=== PATIENT | male | born 1960 | race Caucasian/White ===

== ENCOUNTER 2022-09-21 06:32 | Day surgery (SDC) | payer OTHER, SELFPAY ==
[2022-09-13 13:47] VITALS: BMI 25.2
[2022-09-21] VITALS (13 sets, daily range): BP systolic 118–157; BP diastolic 72–97; PULSE 14–99; RESP 14–19; TEMP 35.5–37; O2SAT 92–100; BMI 25.2
--- NOTE | 2022-09-21 06:00 | DI.RAD.S_ITS ---
PROCEDURE: XR HIP W PEL IF DONE LT 2V INDICATIONS: anterior CALIXTO TECHNIQUE: Spot fluoroscopic intraoperative images of the left hip. COMPARISON: [facility], , XR HIP W PEL IF DONE LT 2V, 09/21/2022, 10:21. FINDINGS: Fluoroscopic intraoperative images demonstrate a left total hip arthroplasty with hardware components in expected positions. Overlying postoperative changes are seen in the soft tissues. IMPRESSION: Intraoperative images demonstrate a left total hip arthroplasty with hardware components in expected positions. Approved by: Maverick Barney M.D. on 09/21/2022 at 13:51
[2022-09-21] MEDS: CELECOXIB 200 MG CAPSULE PO (07:03)
[2022-09-21] MEDS: VANCOMYCIN 1,000 MG/200 ML PIGGYBACK 200 MG IV (07:03)
[2022-09-21] MEDS: ACETAMINOPHEN 325 MG TABLET 975 MG PO (07:04)
--- NOTE | 2022-09-21 07:33 | PM.PREOP ---
Pre-operative Note Interval Note History & Physical reviewed/Exam performed by Physician: Yes Changes to H&P: No
[2022-09-21] MEDS: TRANEXAMIC ACID 1,000 MG VIAL 2000 MG INJ ×2 (08:00→09:43)
[2022-09-21] MEDS: CEFAZOLIN 2 GM/100 ML PREMIX 100 ML IV ×3 (08:01→23:13)
--- NOTE | 2022-09-21 08:31 | SUR.OPER ---
Supine on padded [place] table with bilateral legs secured in padded positioning boots and suspended in positioning spars, operative leg in traction per surgeon. Head on one pillow. Arm on non-operative side secured on padded armboard <90 degrees abduction. Arm on operative side padded and resting across chest then secured with tape over sheet. Padded perineal post in place per surgeon.
[2022-09-21] MEDS: BUPIVACAINE 0.25% (PF) 60 ML, EPINEPHrine 0.3 MG INJ (08:37)
[2022-09-21] MEDS: BUPIVACAINE LIPOSOME 266 MG/20 ML VIAL INJ (08:38)
[2022-09-21] MEDS: LACTATED RINGERS 1,000 ML 42 ML IV (08:39)
[2022-09-21] MEDS: EPINEPHrine 1 MG/ML TOP (08:45)
--- NOTE | 2022-09-21 10:27 | P.OP_ITS ---
Operative Date/Time/Diagnoses Date of procedure: 09/21/22 Time of procedure: 08:00 Pre-op diagnosis: Severe left hip OA Post-op diagnosis: same Procedure & Clinicians Procedure: Left total hip arthroplasty anterior approach Same procedure as scheduled: Yes Indications: The patient has had progressively worsening left hip pain with radiographic changes consistent with arthritis. Non-operative management has failed and the patient has requested total hip replacement. The risks, benefits and alternatives to surgery were discussed with the patient prior to proceeding. Risks discussed included, but were not limited to, failure to relieve pain, leg length discrepancy, dislocation, stiffness, infection, nerve damage, deep venous thrombosis, pulmonary embolism, stroke, coma, heart attack, permanent paralysis and , as well as the potential need for eventual revision of the prosthetic. Surgeon: Sierra Sosa Computer Applications Instructor: David Nava Anesthesia Type: General and Spinal Operative Notes Findings: Severe left hip OA, adequate bone, adequate stability Closure Type: primary Specimen(s): none sent Prosthetic devices, grafts, tissues, transplants, or devices: Sosa and Nephew size 56 R3 cup,one 6.5 mm screw, neutral poly liner, size 2 polar stem with collar, 36+ 0 Oxinium head Estimated Blood Loss (mL): 250 Blood products transfused: none Procedure in detail: The patient was brought to the operating room. Patient was carefully positioned in the supine position. Time-out was performed and antibiotics were given. Anesthesia was induced. He was positioned in the on the table in order to allow hyperextension of the hip. The left lower extremity was prepped and draped in a standard sterile fashion. An anterior left hip incision was made 1 fingerbreadth lateral to the anterior superior iliac spine and extended distally towards the greater trochanter. Dissection was carried out through skin and subcutaneous tissues. Superficial hemostasis was achieved. The fascia over the tensor fascia yhoan was defined and incised with a knife. Two Allis clamps were used to grasp the fascia. Tensor fascia yohan was retracted laterally. A gelpi retractor was placed. Dissection was carried out down along the neck. The circumflex vessels were carefully identified and cauterized with the Aqua Mantis. A PA was used throughout the procedure and was essential for retraction and safe implantation of the components. They were also very helpful for assisting with a establishing adequate hemostasis. There was good visualization of the femoral neck. A Cobra was placed superior to the neck and the gluteus fibers were carefully stripped from that superior aspect of the capsule. A 2nd retractor was placed along the inferior aspect of the neck. The rectus insertion along the capsule was partially released. A 3rd retractor that was then gently placed over the rim of the acetabulum under the rectus. Capsule was carefully incised and released from the intertrochanteric line circumferentially superior to the mid sagittal line and inferiorly to the mid sagittal line until the lesser trochanter was palpable. A tag stitch was placed both in the superior and inferior limb of the capsular insertion. Along the acetabulum capsule was also released up to the mid sagittal 12:00 position. A portion of the labrum was resected. A saw was used to perform an osteotomy at the level of the intertrochanteric line and the junction of the superior femoral neck leaving approximately 1 finger breath of residual inferior neck above the lesser trochanter. A 2nd cut was made along the femoral neck at the base of the head and a napkin ring of neck was removed. Corkscrew was placed in the femoral head and the head was removed without difficulty. Retractors were then repositioned around the acetabulum. Residual labrum was resected and additional osteophytes were removed. A reamer that was 4 mm below the templated size was placed by hand in the acetabulum and it was reamed to centralize the acetabulum. It was then reamed up to 2 under the templated size and fluoroscopy was brought in to confirm the position of the reaming and depth of reaming. I reamed 1 under the anticipated size and touched the rim with line to line reaming. A trial cup was placed and noted that it was appropriately sized and fluoroscopy confirmed position and depth. The component was open and inserted without difficulty fluoroscopic imaging was used to confirm that the cup had been adequately seated and was well positioned. It was further stabilized with a single screw. Neutral poly liner was placed. The cup was tested and noted to be stable. Attention was then directed to the femur. The femur was gently hyperextended additional capsular release was performed as needed in order to allow adequate visualization of the proximal femur with elevation of the femur. Patient was placed in a hyperextended slightly adducted position with maximum external rotation. Box osteotome was used to check for any residual neck as well as sclerotic bone along the trochanter. Morrice pepper was placed in the femur. Additional broaching was performed. Canal finder was used to determine the alignment of the canal and position. Size 1 broach was placed. The canal was then appropriately broached up to the templated size as long as there was adequate stability of the broach and serial advancement of the broach without excessive impingement. Specific attention was directed at avoiding varus attempting to direct the distal aspect of the broach more anteriorly and avoiding excessive anteversion. Trial reduction showed acceptable range of motion, good stability, no posterior impingement, pentecostal of leg length and appropriate lateral shuck. I also hyperflexed the hip and checked that there was no impingement anteriorly and there was good stability with flexion, adduction and internal rotation. Marcaine and Exparel were injected. The stem was placed without difficulty. Repeat trial reduction and x-ray showed acceptable overall position, length, and no evidence of the femoral fracture. Final head was placed. Wound was meticulously irrigated with normal saline. The hip was reduced and additional Exparel and Marcaine were injected. The capsule was closed with interrupted nonabsorbable sutures. The fascia of the tensor was closed with interrupted and running Vicryl. No drain was placed. Any tensor fascia yohan muscle that appeared to be contused or injured which was a minimal amount was carefully resected. Capsule around the tensor was injected with Exparel and Marcaine. The skin was closed with barbed stitches for the subcutaneous tissue and skin. We also used surgical glue. The wound was dressed sterilely. Brief Betadine soak was also used and was meticulously irrigated with normal saline. Patient was transferred to recovery room in satisfactory condition. Complications: none Post-operative Condition: stable Disposition: Acute Care Plan for aftercare: The patient will be maintained on a standard total hip replacement protocol with weight bearing as tolerated and anterior hip precautions. The patient will receive Aspirin and sequential compression devices for DVT prophylaxis. The patient will be discharged home when safe for the home environment.
--- NOTE | 2022-09-21 10:30 | DI.RAD.S_ITS ---
PROCEDURE: XR HIP W PEL IF DONE LT 2V INDICATIONS: LEFT TOTAL ANTERIOR HIP TECHNIQUE: 2 view(s) of the hip acquired. COMPARISON: [facility], NICHOLAS, XR HIP W PEL IF DONE LT 2V, 09/21/2022, 9:03. FINDINGS: Bones: Patient is status post left hip arthroplasty, with hardware components in expected positions. The hip joint appears congruent. The visualized bony structures appear intact. Soft tissues: Overlying postoperative changes are noted. No suspicious soft tissue densities. IMPRESSION: Postoperative changes from left hip arthroplasty. Dictated by: Maverick Khan M.D. on 09/21/2022 at 14:03 Approved by: Maverick Khan M.D. on 09/21/2022 at 14:10
--- NOTE | 2022-09-21 11:21 | PC.NURSE ---
Pt to room 220 via bed from PACU. Pt awake, alert, and oriented x 3. Denies pain, nausea, or shortness of breath. CMS intact throughout but Pt states his leg feels heavy. Pt states he feels depressed and at one point began to sob. Discussed post-op effects. Pt stated he was ok. VS stable. SCD's on and running. Pt oriented to room, call light, bed controls, and tv controls. Oriented Pt in I.S. use and Pt was able to exceed goal with 10 breaths and excellent breath holding ability. Bed alarm on for safety. Pt agrees to call for assistance as needed.
[2022-09-21] MEDS: LACTATED RINGERS 1,000 ML 100 ML IV ×2 (11:28→23:15)
[2022-09-21] MEDS: IBUPROFEN 400 MG TABLET PO ×4 (11:28→23:19)
[2022-09-21] MEDS: ACETAMINOPHEN 325 MG TABLET 650 MG PO ×2 (12:49→18:33)
--- NOTE | 2022-09-21 14:25 | PT.IIE ---
Current Diagnoses Unilateral primary osteoarthritis, left hip (09/21/22) Surgery Performed Operation Date: 09/21/22 07:45 Actual Procedures p Total Hip Arthroplasty/Anterior Approach(Left) - Sierra Sosa MD Surgical History (Last Updated 09/13/22 @ 14:12 by Lynne Nunez, RN) History of colonoscopy Hx of tonsillectomy [place] teeth extracted Medical History (Last Updated 09/13/22 @ 14:12 by Lynne Nunez, RN) BPH (benign prostatic hyperplasia) GERD (gastroesophageal reflux disease) Osteoarthritis Psoriasis Physical Therapy Inpatient Evaluation/Re-Eval M1 PT/OT-IP Prior Functional Status Start: 09/21/22 16:25 Freq: NEEDED Status: Active Protocol: Document 09/21/22 14:25 AB (Rec: 09/21/22 16:48 AB [id number]) Medical Review Prior Functional Status Medical History Reviewed Yes Communication able to make needs known Mobility and Gait pt stated that he is indpeendent with all mobilities and ambulation without AD Social History Household Members spouse Living Arrangements House Number of Floors (Floors) Two Floors Number of Stairs To Enter/Railing? 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) pt lives with spouse and spouse will be able to assist pt M2 PT-IP Current Condition Start: 09/21/22 16:25 Freq: NEEDED Status: Active Protocol: Document 09/21/22 14:25 AB (Rec: 09/21/22 16:48 AB [id number]) Physical Therapy Current Condition Current Condition Evaluation Date 09/21/22 Treatment Diagnosis s/p L CALIXTO anterior approach; difficulty in walking Onset Date 09/21/22 M3 PT-IP Subjective Start: 09/21/22 16:25 Freq: NEEDED Status: Active Protocol: Document 09/21/22 14:25 AB (Rec: 09/21/22 16:48 AB [id number]) Subjective Physical Therapy Visit Type Type Initial Evaluation Visit Start Time 14:25 Visit Stop Time 15:11 Total Visit Minutes 46 Number of QUARRY EXTRACTION WORKER Visits 0 Physical Therapy Visit Comments Patient Comments agreeable to do PT Therapy Pain Assessment Pain Present Pain Present Denied Pain M4 PT-IP Mobility and Gait Start: 09/21/22 16:25 Freq: NEEDED Status: Active Protocol: Document 09/21/22 14:25 AB (Rec: 09/21/22 16:48 [id number]) PT-Bed Mobility Assessment Supine to Sit Supine to Sit Standby Assistance Sit to Supine Sit to Supine Standby Assistance PT-Transfer Assessment Sit to and From Stand Sit to and from Stand Contact Guard Assistance,1 Person Assistance,Use of Upper Extremities Equipment Transfer Assistive Device Gait Belt,Front Wheeled Walker Orthotic/Prosthetic Devices or Brace: No Transfers Transfer Destination Bed,Chair Transfer Technique ambulated Transfer Ability Level of Assist Contact Guard Assistance,1 Person Assistance,Use of Upper Extremities Comments Mobility Comments pt sitting on the chair and spouse in room with pt. pt agreeable to do PT. educated pt on anterior hip precautions . completed sit to stand CGA and ambulated in room ~ 35 ft using FWW CGA. sat on EOB and completed sit to supine SBA. completed sit to stand from EOB CGA and step transfer to chair CGA. Left pt with OT. Caregiver training set up for tomorrow at 10am Gait Assessment Gait Gait Assistance Required: Contact Guard Assist Distance (Feet) 35 Able to Maintain Weight Bearing Status Yes During Gait Assistive Devices Assistive Device Gait Belt,Front Wheeled Walker Orthotic/Prosthetic Devices or Brace: No Gait Deviations General Gait Pattern Decreased Feet Clearance Factors Limiting Gait Function Factors Limiting Gait Function Decreased Activity Tolerance, Decreased Strength,Limited Range of Motion,Poor Balance, Poor Safety Awareness PT-Balance Assessment Sitting Balance and Reactions Static Sitting Balance Ability Normal Dynamic Sitting Balance Ability Good Standing Balance and Reactions Static Standing Balance Ability Fair Dynamic Standing Balance Ability Fair Device Used FWW M5 PT-IP Objective Assessments Start: 09/21/22 16:25 Freq: NEEDED Status: Active Protocol: Document 09/21/22 14:25 AB (Rec: 09/21/22 16:48 [id number]) Orientation Orientation/Cognition Level of Alertness Alert Orientation Name,Place,Situation Language Function Ability No Deficits Noted Safety Awareness Understands Safety Issues Memory Description Short Term Impaired Gross Range of Motion Lower Extremity ROM Assessment Within Functional Limits Strength Lower Extremity Strength Assessment Left Impaired Hip 3+/5 Knee 4-/5 Coordination Assessment Gross Coordination Gross Coordination WNL Sensation Assessment Sensation Gross Sensation WNL Muscle Tone Muscle Tone WNL Yes M6 PT-IP Treatment Start: 09/21/22 16:25 Freq: NEEDED Status: Active Protocol: Document 09/21/22 14:25 AB (Rec: 09/21/22 16:48 AB [id number]) Physical Therapy Treatment Education Education Provided Precautions,Weight Bearing Status,Post-Op Packet,Safety M7 PT-IP Assessment and Plan Start: 09/21/22 16:25 Freq: NEEDED Status: Active Protocol: Document 09/21/22 14:25 AB (Rec: 09/21/22 16:48 AB [id number]) PT Summary Assessment and Plan Potential Rehabilitation Potential Good Status of Condition at Evaluation Evolving Summary Impairments Pain,ROM,Strength,Balance, Coordination,Sensation,Tone, Cognition,Bed Mobility, Transfers,Gait,Activity Tolerance Assessment Summary pt s/p L CALIXTO anterior approach POD0. pt requiring CGA with mobility using FWW. pt plans to go home with spouse to assist and has outpt PT set up . caregiver training set up for tomorrow at 10 am. will continue to assess progress. Goals Bed Mobility Goal Independent Transfer Goal Independent,Front Wheeled Walker Gait Goal Independent,Front Wheel Walker Gait Distance 300 Other Goals up/down 3 steps without rails/ bilateral [place] SBA Days to Meet Goals 5 Frequency of Treatment Frequency Of Treatment Twice a Day Treatment Plan Physical Therapy Treatment Plan Bed Mobility Training,Transfer Training,Gait Training, Therapeutic Exercise,Balance Retraining,Post Op Education, Discharge Planning,Hot or Cold Pack,Neuromuscular Re-ed, Coordination Retraining,Manual Therapy Other Recommendations and Next Treatment Caregiver trainin09/22/22 @ Focus 10 am Precautions Anterior Hip Precautions No Hip Extension,No Hip External Rotation Weight Bearing Status Weight Bearing Status Weight Bear as Tolerated Allowed Weight Bearing Amount (enter % LLE WBAT or #) (%) Recommendations To Nursing Amount of Assist Needed 1 Person Assist Discharge Recommendations PT Discharge Recommendations Home with Assistance, Outpatient PT Transportation Needs at Discharge Private Vehicle
--- NOTE | 2022-09-21 15:25 | OT.IP.EVAL ---
Current Diagnoses Unilateral primary osteoarthritis, left hip (09/21/22) Surgery Performed Operation Date: 09/21/22 07:45 Actual Procedures p Total Hip Arthroplasty/Anterior Approach(Left) - Sierra Sosa MD Past Medical History (Last Updated 09/13/22 @ 14:12 by Lynne Nunez, RN) BPH (benign prostatic hyperplasia) GERD (gastroesophageal reflux disease) Osteoarthritis Psoriasis Surgical History (Last Updated 09/13/22 @ 14:12 by Lynne Nunez, RN) History of colonoscopy Hx of tonsillectomy [place] teeth extracted Occupational Therapy Inpatient Evaluation/Re-Eval M2 OT-IP Current Condition Start: 09/21/22 16:11 Freq: Status: Active Protocol: Document 09/21/22 14:30 [facility] (Rec: 09/21/22 16:26 [facility] [id number]) Occupational Therapy Current Condition Current Condition Evaluation Date 09/21/22 Treatment Diagnosis S/P L CALIXTO anterior approach Diagnosis Onset Date 09/21/22 Post Operative Precautions Anterior Hip Precautions No Hip Extension,No Hip External Rotation M3 OT- IP Subjective and Pain Start: 09/21/22 16:11 Freq: Status: Active Protocol: Document 09/21/22 14:30 [facility] (Rec: 09/21/22 16:26 [facility] [id number]) OT- Subjective Occupational Therapy Visit Type Type Initial Evaluation Visit Start Time 14:30 Visit Stop Time 15:25 Total Visit Minutes 55 Occupational Therapy Visit Comments Patient Comments Pt agreed to get up and pt's in the room. Patient/Caregiver Goals To go home. OT Pain Assessment Pain When Pain Assessed At Rest Pain Present Pain Present Pain Reported Location Left Hip Intensity 2 Scale Used Numeric (0 - 10) M4 OT- IP ADL's Start: 09/21/22 16:11 Freq: Status: Active Protocol: Document 09/21/22 14:30 [facility] (Rec: 09/21/22 16:26 [facility] [id number]) OT [id number] General Evaluation Self-Feeding Ability Independent OT ADL-Grooming General Evaluation Grooming Ability Independent OT ADL-Oral Care General Eval Oral Care Ability Independent OT ADL-Dressing General Eval Lower Body Dressing Ability Standby Assistance,Maximum Assistance Comments OT Dressing Comments Able to go over use of radar mechanic and sock aid and to be sure not to cross his left hip over into external rotation. Pt states his to assist. OT ADL-Toileting Comments OT Toileting Comments Pt states normally stands to wipe and also has a bidet at home. OT ADL-Bathing Comments OT Bathing Comments Pt has a built in seat but suggested pt get a shower chair with back and use of non -slip mat for safety. M5 OT- IP IADL's Start: 09/21/22 16:11 Freq: Status: Active Protocol: Document 09/21/22 14:30 [facility] (Rec: 09/21/22 16:26 [facility] [id number]) OT-Instrumental Activities of Daily Living Deficits IADL Deficits Identified Deficits Home Safety Awareness Awareness of Need for Assistance at Home Good Awareness Ability to Problem Solve Emergency Able to Problem Solve Situations Home Safety Comments Pt has a supportive to be able to assist with all his needs as needed. M6 OT- IP Functional Cognition Start: 09/21/22 16:11 Freq: Status: Active Protocol: Document 09/21/22 14:30 [facility] (Rec: 09/21/22 16:26 [facility] [id number]) Cognitive Factors Limiting Selfcare Function Cognitive Ability Level of Alertness Alert Patient Orientation Name,Place,Situation Attention Span Ability Capable of Focused Attention, Capable of Sustained Attention Ability to Follow Commands Able to Follow One Step Commands Cognitive Comments Cognitive Assessment Comments Pt able to states and follow his hip precautions with good safety for ADl's and mobility needs. OT- Vision and Hearing OT- Hearing Assessment OT- Hearing Assessment WFL OT- Vision Assessment Visual Acuity Glasses All The Time M7 OT- IP Mobility and Balance Start: 09/21/22 16:11 Freq: Status: Active Protocol: Document 09/21/22 14:30 [facility] (Rec: 09/21/22 16:26 [facility] [id number]) OT- Bed Mobility Assessment Supine to Sit Supine to Sit Assist Standby Assistance Sit to Supine Sit to Supine Assist Standby Assistance OT-Transfer Assessment Sit to and From Stand Sit to and from Stand Contact Guard Assistance Transfers Transfer Ability Contact Guard Assistance Technique Transfer Destination Bed,Chair Transfer Technique Stand Step Pivot Devices Transfer Assistive Devices Gait Belt,Front Wheeled Walker Comments Mobility Comments SBA with bed mobility and heavy use of his arms for bed mobility needs and also to push down on the FWW. OT- Balance Assessment Sitting Balance and Reactions Static Sitting Balance Ability Normal Dynamic Sitting Balance Ability Good Standing Balance and Reactions Static Standing Balance Ability Good Dynamic Standing Balance Ability Fair M8 OT- IP Objective Assessments Start: 09/21/22 16:11 Freq: Status: Active Protocol: Document 09/21/22 14:30 [facility] (Rec: 09/21/22 16:26 [facility] [id number]) OT Gross Range of Motion Upper Extremity Range of Motion Assessment Within Functional Limits OT Strength Upper Extremity Strength Assessment Within Functional Limits OT-Muscle Tone Assessment Muscle Tone WNL Yes M9 OT- IP Assessment and Plan Start: 09/21/22 16:11 Freq: Status: Active Protocol: Document 09/21/22 14:30 [facility] (Rec: 09/21/22 16:26 [facility] [id number]) OT Summary Assessment and Plan Potential Rehabilitation Potential Excellent Analytic Complexity at Evaluation Low Summary OT Impairments Pain,Strength,Balance, Functional Mobility,Dressing, Toileting,Bathing,Toilet Transfers,Shower Transfers Progress Towards Goals Progressing Toward Goals Assessment Summary Pt low complexity and main barriers are steps and now will need some assist especially for showering/ dressing needs. Pt has a supportive to be able to assist him at home. Pt's to come for caregiver training for PT tomorrow at 10Am for steps and also to do showering if pt feels up for it. Pt to go home with assist and outpt PT. Encouraged pt to stay on top on his pain medications and be sure to ask the nurse/PA for other options as pt not wanting to take Oxycodone at this time and is just on Advil . Goals Dressing Goal Independent Toileting Goal Independent Bathing Goal Independent Toilet Transfer Goal Independent Shower Transfer Goal Independent Days to Meet Goals 5 Frequency of Treatment Frequency Of Treatment Once a Day Treatment Plan OT Treatment Plan ADL Training,Functional Mobility,Patient/Family Education,Discharge Planning Other Treatment Recommendations and Next shower if pt willing Treatment Focus Discharge Recommendations OT Discharge Recommendations Home with Assistance, Outpatient PT Home Equipment Needs shower chair Transportation Needs at Discharge Private Vehicle
[2022-09-21] MEDS: ASPIRIN EC 81 MG TABLET PO (21:04)
[2022-09-21] MEDS: DOCUSATE 100 MG CAPSULE PO (21:05)
[2022-09-22] MEDS: ACETAMINOPHEN 325 MG TABLET 650 MG PO ×2 (00:57→06:22)
[2022-09-22] MEDS: OXYCODONE IR 5 MG TABLET PO (00:57)
[2022-09-22] MEDS: IBUPROFEN 400 MG TABLET PO ×3 (02:59→11:07)
[2022-09-22 03:06] VITALS: BP 122/76; PULSE 98; RESP 18; TEMP 36.2; O2SAT 98
[2022-09-22 05:50] LABS: Hematocrit 34.9 % (41-53); Hemoglobin 12.5 g/dL (13.5-17.5)
[2022-09-22] MEDS: OXYCODONE IR 10 MG TABLET PO (06:22)
[2022-09-22] MEDS: PANTOPRAZOLE DR 20 MG TABLET PO (06:23)
--- NOTE | 2022-09-22 07:34 | P.DS_ITS ---
History of Present Illness History of Present Illness Date Patient Seen: 09/22/22 Time Patient Seen: 07:34 Chief complaint: OPB Narrative: Operative Date/Time/Diagnoses Date of procedure: 09/21/22 Time of procedure: 08:00 Pre-op diagnosis: Severe left hip OA Post-op diagnosis: same Procedure & Clinicians Procedure: Left total hip arthroplasty anterior approach Same procedure as scheduled: Yes Indications: The patient has had progressively worsening left hip pain with radiographic changes consistent with arthritis. Non-operative management has failed and the patient has requested total hip replacement. The risks, benefits and alternatives to surgery were discussed with the patient prior to proceeding. Risks discussed included, but were not limited to, failure to relieve pain, leg length discrepancy, dislocation, stiffness, infection, nerve damage, deep venous thrombosis, pulmonary embolism, stroke, coma, heart attack, permanent paralysis and , as well as the potential need for eventual revision of the prost hetic. Surgeon: Sierra Sosa Accounting Administrator: David Nava Anesthesia Type: General and Spinal Operative Notes Findings: Severe left hip OA, adequate bone, adequate stability Closure Type: primary Specimen(s): none sent Prosthetic devices, grafts, tissues, transplants, or devices: Sosa and Nephew size 56 R3 cup,one 6.5 mm screw, neutral poly liner, size 2 polar stem with collar, 36+ 0 Oxinium head Estimated Blood Loss (mL): 250 Blood products transfused: none Discharge Providers Provider Discharge Date: 09/22/22 Consults: 09/21/22 06:00 Consult to Anesthesiology Routine Comment: Consulting Provider: Anesthesiologist Reason for consultation: Regional block for post operative pain control 09/21/22 10:49 Consult to Discharge Planning Routine Comment: Consult to Occupational Therapy Evaluate & Treat Comment: Physician Instructions: Evaluate and treat Consult to Physical Therapy Evaluate & Treat Comment: Physician Instructions: post op CALIXTO protocol Discharge provider: Leny Stover PA-C Summary Hospital Course Discharge Diagnosis: Left hip osteoarthritis, s/p left total hip arthroplasty Hospital Course: Mr Hanson's hospital course was unremarkable. On the morning of POD# 1, he was feeling well and wanted to go home. He was eating and voiding without difficulty. He was evaluated by PT during his stay and they felt he was safe for homegoing. He was having very little pain with oral pain medication. Exam Vital Signs (past 8 hours): - 09/22/22 03:06 Temperature 97.2 F L Pulse Rate 98 H Respiratory Rate 18 Blood Pressure 122/76 Pulse Oximetry 98 Oxygen Flow Rate 0 Oxygen Delivery Method Room Air Oxygen Flow Rate 0 Narrative Exam Narrative: 5/5 strength in hip flexors, quadriceps, hamstrings, DF, PF, EHL on left. Sensation to light touch intact throughout LLE. Calf soft, compressible, nontender. Aquacel dressing CDI. Objective Labs 09/22/22 05:13 Labs: Laboratory Results - last 24 hr 09/22/22 05:13 Hgb 12.5 L Hct 34.9 L PFSH Medical History (Updated 09/13/22 @ 14:12 by Lynne Nunez, ROMI) BPH (benign prostatic hyperplasia) GERD (gastroesophageal reflux disease) Osteoarthritis Psoriasis Surgical History (Updated 09/13/22 @ 14:12 by Lynne Nunez, ROMI) History of colonoscopy Hx of tonsillectomy [place] teeth extracted Social History household members: spouse Smoking Status: Never smoker alcohol intake: current Discharge Assessment & Plan Assessment and Plan Assessment: Left hip osteoarthritis, s/p left total hip arthroplasty Plan of Treatment: Discharge home, multimodal pain control (pt has rxs), outpt PT, f/u in 2 weeks as scheduled. Discharge Plan Discharge Plan Patient Disposition: Home Discharge orders & Medications Discharge Orders: Discharge (Order); Ordered 09/22/22 Ordered By: Leny Stover Prescriptions: Continued tamsulosin 0.4 mg Capsule 0.4 mg PO DAILY omeprazole 20 mg Tablet,Delayed Release (Dr/Ec) 20 mg PO DAILY cholecalciferol (vitamin D3) [Vitamin D3] 125 mcg (5,000 unit) Tablet 125 mcg PO DAILY omega 9-kjg-set-fish oil [Fish Oil] 300-1,000 mg Capsule 1 cap PO DAILY Follow up/Referrals: Sierra Sosa MD [Physician] - As previously scheduled (Follow up with Bety Kerr PA-C, on 10/05/2022 @ 4:00 pm at [facility] office in [place].) Diet/Activity/Treatments Diet: Diet as Tolerated Activity: Weightbearing as tolerated to left leg. Anterior hip precautions. Cold/Heat Therapy: Ice to hip as needed for pain. Skin/Wound/Dressing Care Report to your healthcare provider any signs of infection, such as:: chills, fever, night sweats, unusual drainage and unusual redness Dressing: May shower. Leave dressing in place until follow up in office. No bathing or otherwise soaking incision. Call the office if the dressing becomes saturated inside. Visit Report/Discharge Packet Instructions: DI for Hip Replacement Stand Alone Forms: Patient Portal/API, Surgery Discharge Discharge Data Attending Provider: Sierra Sosa Quality VTE Deep Vein Thrombosis/Pulmonary Embolism Present on Admission: No
[2022-09-22 07:50] VITALS: BP 117/67; PULSE 78; RESP 18; TEMP 36.3; O2SAT 97
[2022-09-22] MEDS: CHOLECALCIFEROL (VITAMIN D3) 5,000 UNIT TABLET 5000 UNIT PO (08:19)
[2022-09-22] MEDS: TAMSULOSIN 0.4 MG CAPSULE PO (08:19)
[2022-09-22] MEDS: FISH OIL 1,000 MG CAPSULE 1000 MG PO (08:19)
[2022-09-22] MEDS: ASPIRIN EC 81 MG TABLET PO (08:19)
[2022-09-22] MEDS: DOCUSATE 100 MG CAPSULE PO (08:19)
--- NOTE | 2022-09-22 08:33 | PC.NURSE ---
Assess- Patient is alert and oriented x4, r.anterior hip dressing is cdi. Patient had tylenol and ibuprofen this morning and this has been helpful for discomfort to hip. He was offered Oxycodone but refused. will be here soon to visit. Patient will work with physical therapy and then be discharged home if all goes well.
--- NOTE | 2022-09-22 10:05 | PT.IPTN ---
Current Diagnoses Unilateral primary osteoarthritis, left hip (09/21/22) Surgery Performed Operation Date: 09/21/22 07:45 Actual Procedures p Total Hip Arthroplasty/Anterior Approach(Left) - Sierra Sosa MD Physical Therapy Treatment Note M2 PT-IP Current Condition Start: 09/21/22 16:25 Freq: NEEDED Status: Active Protocol: Document 09/21/22 14:25 AB (Rec: 09/21/22 16:48 AB [id number]) Physical Therapy Current Condition Current Condition Evaluation Date 09/21/22 Treatment Diagnosis s/p L CALIXTO anterior approach; difficulty in walking Onset Date 09/21/22 M3 PT-IP Subjective Start: 09/21/22 16:25 Freq: NEEDED Status: Active Protocol: Document 09/22/22 10:32 TS (Rec: 09/22/22 10:57 TS [id number]) Subjective Physical Therapy Visit Type Type Treatment Note Visit Start Time 10:05 Visit Stop Time 10:31 Total Visit Minutes 26 Number of JEWELRY RACKER Visits 1 Physical Therapy Visit Comments Patient Comments Pt found resting in bed, spouse in room, motivated to work PT. Therapy Pain Assessment Pain When Pain Assessed During Mobility Pain Present Pain Present Denied Pain M4 PT-IP Mobility and Gait Start: 09/21/22 16:25 Freq: NEEDED Status: Active Protocol: Document 09/22/22 10:32 TS (Rec: 09/22/22 10:57 TS [id number]) PT-Bed Mobility Assessment Supine to Sit Supine to Sit Standby Assistance Scooting Scooting to Edge of Bed Standby Assistance PT-Transfer Assessment Sit to and From Stand Sit to and from Stand Standby Assistance,1 Person Assistance,Use of Upper Extremities Equipment Transfer Assistive Device Gait Belt,Front Wheeled Walker Orthotic/Prosthetic Devices or Brace: No Comments Mobility Comments Pt found resting in bed, agreeable to PT. Pt recalled 2 /2 hip precautions prior to mobility. Supine to sit SBA with BUE support on bed to scoot forward. Spouse instructed and donned gait belt prior to sit to stand. Sit to stand with FWW SBA, pt quickly to stand with good balance and posture. He ambulated ~220' SBA with step to antalgic gait with FWW, pt cued to keep FWW on ground. Pt performed steps x3 with BUE rail support, spouse instructed in proper handplacement on gait belt and step sequencing CGA. Pt ambulated back to room, educated pt on post-op exercises and frequency of walking at home. Pt was left in chair with call light nearby, spouse in room, RN notified. Gait Assessment Gait Gait Assistance Required: Standby Assistance Distance (Feet) 220 Able to Maintain Weight Bearing Status Yes During Gait Assistive Devices Assistive Device Gait Belt,Front Wheeled Walker Orthotic/Prosthetic Devices or Brace: No Gait Deviations General Gait Pattern Antalgic,Decreased Stride Length,Decreased Feet Clearance Factors Limiting Gait Function Factors Limiting Gait Function Decreased Activity Tolerance, Decreased Strength,Limited Range of Motion,Poor Balance, Poor Safety Awareness Comments Gait Comments See mobility comments. Stair Climbing Assessment Evaluation Level of Assist On Stairs Contact Guard Assistance,1 Person Assistance Devices Stair Climbing Assistive Devices Left Railing,Right Railing Technique/Endurance Stair Climbing Direction Ascend and Descend Stair Climbing Technique Step to Step Number of Steps Climbed 3 Comments Stair Climbing Comments See mobility comments. PT-Balance Assessment Sitting Balance and Reactions Static Sitting Balance Ability Normal Dynamic Sitting Balance Ability Good Standing Balance and Reactions Static Standing Balance Ability Good Dynamic Standing Balance Ability Good Device Used FWW M5 PT-IP Objective Assessments Start: 09/21/22 16:25 Freq: NEEDED Status: Active Protocol: Document 09/21/22 14:25 AB (Rec: 09/21/22 16:48 AB [id number]) Orientation Orientation/Cognition Level of Alertness Alert Orientation Name,Place,Situation Language Function Ability No Deficits Noted Safety Awareness Understands Safety Issues Memory Description Short Term Impaired Gross Range of Motion Lower Extremity ROM Assessment Within Functional Limits Strength Lower Extremity Strength Assessment Left Impaired Hip 3+/5 Knee 4-/5 Coordination Assessment Gross Coordination Gross Coordination WNL Sensation Assessment Sensation Gross Sensation WNL Muscle Tone Muscle Tone WNL Yes M6 PT-IP Treatment Start: 09/21/22 16:25 Freq: NEEDED Status: Active Protocol: Document 09/22/22 10:32 TS (Rec: 09/22/22 10:57 TS [id number]) Physical Therapy Treatment Education Education Provided Precautions,Weight Bearing Status,Post-Op Packet,Safety M7 PT-IP Assessment and Plan Start: 09/21/22 16:25 Freq: NEEDED Status: Active Protocol: Document 09/22/22 10:32 TS (Rec: 09/22/22 10:57 TS [id number]) PT Summary Assessment and Plan Potential Rehabilitation Potential Good Summary Impairments Pain,ROM,Strength,Balance, Coordination,Sensation,Tone, Cognition,Bed Mobility, Transfers,Gait,Activity Tolerance Progress Towards Goals Progressing Toward Goals Assessment Summary Pt is progressing well with his mobility. He is SBA for all bed mobility and sit to stands with FWW. He progressed his ambulation to ~220' SBA with FWW, has a step to antlalgic gait with FWW, he required cues to keep FWW on ground when walking. He progressed his stairs to x3 CGA with BUE handrail assist. Pt's spouse was educated/ instructed on proper donning of gait, handplacement on gait belt with mobility and the proper sequencing of stairs. PT is recommending return home with assist. Pt has outpatient appointment in a week. Goals Bed Mobility Goal Independent Transfer Goal Independent,Front Wheeled Walker Gait Goal Independent,Front Wheel Walker Gait Distance 300 Other Goals up/down 3 steps without rails/ bilateral [place] SBA Days to Meet Goals 5 Frequency of Treatment Frequency Of Treatment Twice a Day Treatment Plan Physical Therapy Treatment Plan Bed Mobility Training,Transfer Training,Gait Training, Therapeutic Exercise,Balance Retraining,Post Op Education, Discharge Planning,Hot or Cold Pack,Neuromuscular Re-ed, Coordination Retraining,Manual Therapy Other Recommendations and Next Treatment Continue to work on stair Focus training and assess carryover of post-op ex. Precautions Anterior Hip Precautions No Hip Extension,No Hip External Rotation Weight Bearing Status Weight Bearing Status Weight Bear as Tolerated Allowed Weight Bearing Amount (enter % LLE WBAT or #) (%) Recommendations To Nursing Amount of Assist Needed Standby Assistance Discharge Recommendations PT Discharge Recommendations Home with Assistance, Outpatient PT Transportation Needs at Discharge Private Vehicle
--- NOTE | 2022-09-22 11:08 | OT.IPNOTE ---
Finalized all OT needs, pt's able to picker a shower chair for pt to use at home. No charge.
== END 2022-09-22 11:30 | disposition home or self-care (01) ==
LOC: OR 06:35 → AC 06:36
PROVIDERS: Referring Provider Orthopaedic Surgery; Visit Provider Orthopaedic Surgery
PROC: (CPT 27130; principal; 2022-09-21 07:45)
DX: M16.12 Unilateral primary osteoarthritis, left hip (principal)
CPT/HCPCS: 27130; 36415; 73502; 76000; 85014; 85018; 97116; 97162; 97165; 97530; 97535; C1776; A9270; C9290; J0171; J0690; J3010

== ENCOUNTER 2022-12-19 08:26 | Day surgery (SDC) | payer OTHER, SELFPAY ==
[2022-09-21 10:59] VITALS: BMI 25.2
[2022-12-12 13:42] VITALS: BMI 25.2
[2022-12-19] VITALS (14 sets, daily range): BP systolic 100–143; BP diastolic 61–86; PULSE 72–91; RESP 12–20; TEMP 35.7–36.4; O2SAT 94–100; BMI 24.1
--- NOTE | 2022-12-19 06:00 | DI.RAD.S_ITS ---
PROCEDURE: XR HIP W PEL IF DONE RT 2V INDICATIONS: CALIXTO right inner op anetrior TECHNIQUE: AP pelvis and lateral view of the right hip acquired. [facility] [place], XR PELVIS WITH LATERAL HIP RIGHT, 11/30/2022, 16:47. FINDINGS: Bones: Patient is status post right hip arthroplasty, with hardware components in expected positions. The hip joint appears congruent. Left hip arthroplasty postsurgical changes are stable compared to prior exam. The visualized bony structures appear intact. Soft tissues: Overlying postoperative changes are noted. No suspicious soft tissue densities. IMPRESSION: Expected postsurgical change for right hip arthroplasty Dictated by: Patricia Arroyo MD, PhD on 12/19/2022 at 13:31 Approved by: Patricia Arroyo MD, PhD on 12/19/2022 at 13:31
[2022-12-19] MEDS: LACTATED RINGERS 1,000 ML 42 ML IV (08:37)
[2022-12-19] MEDS: ACETAMINOPHEN 325 MG TABLET 975 MG PO (09:10)
[2022-12-19] MEDS: PREGABALIN 75 MG CAPSULE PO (09:11)
[2022-12-19] MEDS: CELECOXIB 200 MG CAPSULE PO (09:11)
[2022-12-19] MEDS: VANCOMYCIN 1,000 MG/200 ML PIGGYBACK 200 MG IV (09:21)
--- NOTE | 2022-12-19 10:12 | PM.PREOP ---
Pre-operative Note Interval Note History & Physical reviewed/Exam performed by Physician: Yes Changes to H&P: No
--- NOTE | 2022-12-19 10:12 | PM.OP.1 ---
Operative Date/Time/Diagnoses Date of procedure: 12/19/22 Time of procedure: 11:00 Pre-op diagnosis: Right hip OA Post-op diagnosis: same Procedure & Clinicians Procedure: Right total hip arthroplasty anterior approach Same procedure as scheduled: Yes Indications: The patient has had progressively worsening right hip pain with radiographic changes consistent with arthritis. Non-operative management has failed and the patient has requested total hip replacement. The risks, benefits and alternatives to surgery were discussed with the patient prior to proceeding. Risks discussed included, but were not limited to, failure to relieve pain, leg length discrepancy, dislocation, stiffness, infection, nerve damage, deep venous thrombosis, pulmonary embolism, stroke, coma, heart attack, permanent paralysis and , as well as the potential need for eventual revision of the prosthetic. Surgeon: Sierra Sosa Consultant Dietitian: Guero Alvarez Anesthesia Type: General and Spinal Operative Notes Findings: Severe right hip OA, adequate bone, adequate stability Closure Type: primary Specimen(s): none sent Prosthetic devices, grafts, tissues, transplants, or devices: Sosa and nephew R3 56, neutral poly liner, one 6.5 mm screw, polar stem standard offset size 3, +0 Oxinium head by 36 Estimated Blood Loss (mL): 250 Blood products transfused: none Procedure in detail: The patient was brought to the operating room. Patient was carefully positioned in the supine position. Time-out was performed and antibiotics were given. Anesthesia was induced. He was positioned in the on the table in order to allow hyperextension of the hip. The right lower extremity was prepped and draped in a standard sterile fashion. An anterior right hip incision was made 1 fingerbreadth lateral to the anterior superior iliac spine and extended distally towards the greater trochanter. Dissection was carried out through skin and subcutaneous tissues. Superficial hemostasis was achieved. The fascia over the tensor fascia yohan was defined and incised with a knife. Two Allis clamps were used to grasp the fascia. Tensor fascia yohan was retracted laterally. A gelpi retractor was placed. Dissection was carried out down along the neck. The circumflex vessels were carefully identified and cauterized with the Aqua Mantis. A PA was used during the procedure was essential for intraoperative retraction and safe implantation of the components. There was good visualization of the femoral neck. A Cobra was placed superior to the neck and the gluteus fibers were carefully stripped from that superior aspect of the capsule. A 2nd retractor was placed along the inferior aspect of the neck. The rectus insertion along the capsule was partially released. A 3rd retractor that was then gently placed over the rim of the acetabulum under the rectus. Capsule was carefully incised and released from the intertrochanteric line circumferentially superior to the mid sagittal line and inferiorly to the mid sagittal line until the lesser trochanter was palpable. A tag stitch was placed both in the superior and inferior limb of the capsular insertion. Along the acetabulum capsule was also released up to the mid sagittal 12:00 position. A portion of the labrum was resected. A saw was used to perform an osteotomy at the level of the intertrochanteric line and the junction of the superior femoral neck leaving approximately 1 finger breath of residual inferior neck above the lesser trochanter. A 2nd cut was made along the femoral neck at the base of the head and a napkin ring of neck was removed. Corkscrew was placed in the femoral head and the head was removed without difficulty. Retractors were then repositioned around the acetabulum. Residual labrum was resected and additional osteophytes were removed. A reamer that was 4 mm below the templated size was placed by hand in the acetabulum and it was reamed to centralize the acetabulum. It was then reamed up to 2 under the templated size and fluoroscopy was brought in to confirm the position of the reaming and depth of reaming. I reamed 1 under the anticipated size. A trial cup was placed and noted that it was appropriately sized and fluoroscopy confirmed position and depth. The component was open and inserted without difficulty fluoroscopic imaging was used to confirm that the cup had been adequately seated and was well positioned. It was further stabilized with a single screw. Neutral poly liner was placed. The cup was tested and noted to be stable. Attention was then directed to the femur. The femur was gently hyperextended additional capsular release was performed as needed in order to allow adequate visualization of the proximal femur with elevation of the femur. Patient was placed in a hyperextended slightly adducted position with maximum external rotation. Box osteotome was used to check for any residual neck as well as sclerotic bone along the trochanter. [place] pepper was placed in the femur. Additional broaching was performed. Canal finder was used to determine the alignment of the canal and position. Size 1 broach was placed. The canal was then appropriately broached up to the templated size as long as there was adequate stability of the broach and serial advancement of the broach without excessive impingement. Specific attention was directed at avoiding varus attempting to direct the distal aspect of the broach more anteriorly and avoiding excessive anteversion. Trial reduction showed acceptable range of motion, good stability, no posterior impingement, pentecostal of leg length and appropriate lateral shuck. I also hyperflexed the hip and checked that there was no impingement anteriorly and there was good stability with flexion, adduction and internal rotation. Marcaine and Exparel were injected. The stem was placed without difficulty. Repeat trial reduction and x-ray showed acceptable overall position, length, and no evidence of the femoral fracture. Final head was placed. Wound was meticulously irrigated with normal saline. The hip was reduced and additional Exparel and Marcaine were injected. The capsule was closed with interrupted nonabsorbable sutures. The fascia of the tensor was closed with interrupted and running Vicryl. No drain was placed. Any tensor fascia yohan muscle that appeared to be contused or injured which was a minimal amount was carefully resected. Capsule around the tensor was injected with Exparel and Marcaine. The skin was closed with barbed stitches for the subcutaneous tissue and skin. We also used surgical glue. The wound was dressed sterilely. Brief Betadine soak was also used and was meticulously irrigated with normal saline. Patient was transferred to recovery room in satisfactory condition. Complications: none Post-operative Condition: stable Disposition: Acute Care Plan for aftercare: The patient will be maintained on a standard total hip replacement protocol with weight bearing as tolerated and anterior hip precautions. The patient will receive Aspirin and sequential compression devices for DVT prophylaxis. The patient will be discharged home when safe for the home environment.
[2022-12-19] MEDS: CEFAZOLIN 2 GM/100 ML PREMIX 100 ML IV ×2 (11:15→19:20)
[2022-12-19] MEDS: TRANEXAMIC ACID 1,000 MG VIAL 1000 MG INJ ×2 (11:15→12:56)
--- NOTE | 2022-12-19 11:30 | SUR.OPER ---
Supine on padded [place] table with bilateral legs secured in padded positioning boots and suspended in positioning spars, operative leg in traction per surgeon. Head on one pillow. Arm on non-operative side secured on padded armboard <90 degrees abduction. Arm on operative side padded and resting across chest then secured with tape over sheet. Padded perineal post in place per surgeon.
[2022-12-19] MEDS: BUPIVACAINE 0.25% (PF) 60 ML, EPINEPHrine 0.3 MG INJ (11:34)
[2022-12-19] MEDS: BUPIVACAINE LIPOSOME 266 MG/20 ML VIAL INJ (11:34)
--- NOTE | 2022-12-19 13:30 | DI.RAD.S_ITS ---
PROCEDURE: XR HIP W PEL IF DONE RT 2V INDICATIONS: POST OP ANTERIOR RIGHT HIP TECHNIQUE: AP pelvis and lateral view of the right hip acquired. COMPARISON: [facility], [place], XR PELVIS WITH LATERAL HIP RIGHT, 11/30/2022, 16:47. [facility], CR, XR HIP W PEL IF DONE RT 2V, 12/19/2022, 13:03. FINDINGS: Bones: Patient is status post right hip arthroplasty, with hardware components in expected positions. The hip joint appears congruent. Postsurgical changes compatible with left hip arthroplasty stable compared to prior exam. The visualized bony structures appear intact. Soft tissues: Overlying postoperative changes are noted. No suspicious soft tissue densities. IMPRESSION: Expected postsurgical change for right hip arthroplasty. Dictated by: Patricia Arroyo MD, PhD on 12/19/2022 at 15:25 Approved by: Patricia Arroyo MD, PhD on 12/19/2022 at 15:25
--- NOTE | 2022-12-19 14:25 | PT.IIE ---
Current Diagnoses Unilateral primary osteoarthritis, right hip (12/19/22) Surgery Performed Operation Date: 12/19/22 10:45 Actual Procedures p Total Hip Arthroplasty/Anterior Approach(Right) - Sierra Sosa MD Surgical History (Last Updated 12/12/22 @ 13:43 by Henna Hobson, RN) History of colonoscopy History of total left hip replacement (09/21/22) Hx of tonsillectomy [place] teeth extracted Medical History (Last Updated 12/12/22 @ 13:52 by Henna Hobson RN) BPH (benign prostatic hyperplasia) GERD (gastroesophageal reflux disease) LBBB (left bundle branch block) Osteoarthritis Psoriasis Physical Therapy Inpatient Evaluation/Re-Eval M1 PT/OT-IP Prior Functional Status Start: 12/19/22 16:28 Freq: NEEDED Status: Active Protocol: Document 12/19/22 16:28 AB (Rec: 12/19/22 16:57 AB [id number]) Medical Review Prior Functional Status Medical History Reviewed Yes Diet/Fluid Consistency Regular Communication Pt is able to express all needs. Mobility and Gait Independent without AD. Activities of Daily Living and IADL's IND with all ADLs and IADLs. 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 Social History Household Members spouse Living Arrangements House Number of Floors (Floors) Two Floors Number of Stairs To Enter/Railing? 3 COREY without hand rails Home Environment High Toilet,Walk in Shower, Built-In Shower Seat,Bidet Home Equipment Front Wheel Walker,Four Wheel Walker,Straight Cane,Shower Seat without Backrest,Hand Held Shower,Grab Bars In Shower Employment Status [employer] Employed Additional Social History Comment is taking time off work this week to assist pt. He is taking 2 weeks off work, but once at work he has the ability to sit or stand as needed. M2 PT-IP Current Condition Start: 12/19/22 16:28 Freq: NEEDED Status: Active Protocol: Document 12/19/22 16:28 AB (Rec: 12/19/22 16:57 AB [id number]) Physical Therapy Current Condition Current Condition Evaluation Date 12/19/22 Treatment Diagnosis s/p right anterior CALIXTO Onset Date 12/19/22 M3 PT-IP Subjective Start: 12/19/22 16:28 Freq: NEEDED Status: Active Protocol: Document 12/19/22 16:28 AB (Rec: 12/19/22 16:57 AB [id number]) Subjective Physical Therapy Visit Type Type Initial Evaluation Visit Start Time 15:41 Visit Stop Time 16:25 Total Visit Minutes 44 Physical Therapy Visit Comments Patient Comments Pt presents semi supine in bed with at bedside. He is agreeable to PT evaluation this afternoon. Therapy Pain Assessment Pain When Pain Assessed At Rest Pain Present Pain Present Denied Pain M4 PT-IP Mobility and Gait Start: 12/19/22 16:28 Freq: NEEDED Status: Active Protocol: Document 12/19/22 16:28 AB (Rec: 12/19/22 16:57 AB [id number]) PT-Bed Mobility Assessment Rolling Level of Assist Standby Assistance Supine to Sit Supine to Sit Standby Assistance Sit to Supine Sit to Supine Standby Assistance Scooting Scooting to Edge of Bed Standby Assistance PT-Transfer Assessment Sit to and From Stand Sit to and from Stand Standby Assistance,Use of Upper Extremities Equipment Transfer Assistive Device Gait Belt,Front Wheeled Walker Transfers Transfer Destination Bed,Chair Transfer Technique ambulated Transfer Ability Level of Assist Standby Assistance,Use of Upper Extremities Comments Mobility Comments Pt performed all functional mobility with SBA, needing verbal cues for proper hand placement and reminders to avoid hip extension while ambulating or when performing transfers and backing up to chair. He ambulated in room 15ft x2 with FWW and SBA, due to continuing to feel numbness in LLE. Of note, the pt was also incontinent when performing ambulation, again likely due to numbness. BP was stable through changes in position and pt denied symptoms of dizziness or lightheadedness, indicating no signs of orthostatic hypotension. At end of session , pt returned to bed again with SBA, with all needs met, call light within reach and in room. RN was notified of findings. Gait Assessment Gait Gait Assistance Required: Standby Assistance Distance (Feet) 15 Assistive Devices Assistive Device Gait Belt,Front Wheeled Walker Gait Deviations General Gait Pattern Antalgic,Step-to Gait Factors Limiting Gait Function Factors Limiting Gait Function Decreased Activity Tolerance, Decreased Sensation,Decreased Strength,Limited Range of Motion Comments Gait Comments Pt ambulates 15ft x2 with FWW and SBA, requiring intermittent cues for proper use of FWW and to maintain hip precautions. Stair Climbing Assessment Comments Stair Climbing Comments Not assessed today due to numbness in LLE. PT-Balance Assessment Sitting Balance and Reactions Static Sitting Balance Ability Normal Dynamic Sitting Balance Ability Normal Standing Balance and Reactions Static Standing Balance Ability Normal Dynamic Standing Balance Ability Good Device Used FWW M5 PT-IP Objective Assessments Start: 12/19/22 16:28 Freq: NEEDED Status: Active Protocol: Document 12/19/22 16:28 AB (Rec: 12/19/22 16:57 AB [id number]) Orientation Orientation/Cognition Level of Alertness Alert Orientation Name,Age,Birthday,Month,Date, Year,Day of Week,Place, Situation Language Function Ability No Deficits Noted Safety Awareness Understands Safety Issues Memory Description No Deficits Noted Gross Range of Motion Upper Extremity ROM Assessment Within Functional Limits Lower Extremity ROM Assessment Right Impaired Strength Upper Extremity Strength Assessment Within Functional Limits Lower Extremity Strength Assessment Within Functional Limits Sensation Assessment Sensation Gross Sensation Left LE Impaired Sensation Description Numbness M6 PT-IP Treatment Start: 12/19/22 16:28 Freq: NEEDED Status: Active Protocol: Document 12/19/22 16:28 AB (Rec: 12/19/22 16:57 AB [id number]) Physical Therapy Treatment Education Education Provided Precautions,Weight Bearing Status,Post-Op Packet,Safety Brace Education Patient,Caregiver M7 PT-IP Assessment and Plan Start: 12/19/22 16:28 Freq: NEEDED Status: Active Protocol: Document 12/19/22 16:28 AB (Rec: 12/19/22 16:57 AB [id number]) PT Summary Assessment and Plan Potential Rehabilitation Potential Excellent Status of Condition at Evaluation Stable Summary Impairments Pain,ROM,Strength,Balance, Sensation,Bed Mobility, Transfers,Gait,Activity Tolerance Assessment Summary Luther Hanson is a 62 year old male patient who is s/p right anterior CALIXTO performed on 12/19/22. The pt required SBA and verbal cues to perform all functional mobility, with the exception of stairs. He use a FWW for STS, transfer and ambulation and required education and reminders to maintain precautions. He was able to ambulate on 15ft x2 and was unable to perform stairs due to continued numbness in LLE. Based on his current level of function and expected improvement, PT recommends discharge to home with assistance and outpatient PT. The pt would benefit from skilled PT during hospitalization to improve to his highest level of function. Goals Bed Mobility Goal Independent Transfer Goal Independent,Front Wheeled Walker Gait Goal Independent,Front Wheel Walker Gait Distance 150 Other Goals Pt to ascend/descend 3 steps with use of LRAD and SBA to show improving strength and stability. Pt to ambulate 150ft Du[place] with FWW or LRAD to show improving strength and tolerance to activity. Pt to perform transfer with LRAD to show improving level of function. Days to Meet Goals 5 Frequency of Treatment Frequency Of Treatment Twice a Day Treatment Plan Physical Therapy Treatment Plan Bed Mobility Training,Transfer Training,Gait Training, Therapeutic Exercise,Balance Retraining,Post Op Education, Discharge Planning,Hot or Cold Pack,Neuromuscular Re-ed, Coordination Retraining,Manual Therapy Other Recommendations and Next Treatment Assess longer gait distance Focus and stairs. Precautions Anterior Hip Precautions No Hip Extension,No Hip External Rotation Weight Bearing Status Weight Bearing Status Weight Bear as Tolerated Recommendations To Nursing Amount of Assist Needed Standby Assistance Discharge Recommendations PT Discharge Recommendations Home with Assistance, Outpatient PT Transportation Needs at Discharge Private Vehicle,Wheelchair/ Cabulance
[2022-12-19] MEDS: IBUPROFEN 400 MG TABLET PO ×2 (16:33→21:49)
[2022-12-19] MEDS: LACTATED RINGERS 1,000 ML 100 ML IV (16:34)
--- NOTE | 2022-12-19 16:38 | OT.IPNOTE ---
Pt just had a L CALIXTO 10/04 and now just had R CALIXTO. Pt states has no OT needs and that his to assist as needed. Therefore discharge OT eval orders, no charge.
[2022-12-19] MEDS: ACETAMINOPHEN 325 MG TABLET 650 MG PO (19:20)
[2022-12-19] MEDS: DOCUSATE 100 MG CAPSULE PO (21:49)
[2022-12-19] MEDS: ASPIRIN EC 81 MG TABLET PO (21:49)
[2022-12-20] VITALS: BP 122/84; PULSE 74; RESP 17; TEMP 36.5; O2SAT 98
[2022-12-20] MEDS: LACTATED RINGERS 1,000 ML 100 ML IV (02:24)
[2022-12-20] MEDS: IBUPROFEN 400 MG TABLET PO ×3 (02:25→09:50)
[2022-12-20] MEDS: ACETAMINOPHEN 325 MG TABLET 650 MG PO ×2 (02:25→09:49)
[2022-12-20] MEDS: CEFAZOLIN 2 GM/100 ML PREMIX 100 ML IV (02:25)
[2022-12-20 05:20] LABS: Hematocrit 36.1 % (41-53); Hemoglobin 12.8 g/dL (13.5-17.5)
[2022-12-20] MEDS: PANTOPRAZOLE DR 20 MG TABLET PO (05:41)
--- NOTE | 2022-12-20 07:07 | P.DS_ITS ---
History of Present Illness History of Present Illness Date Patient Seen: 12/20/22 Time Patient Seen: 07:07 Chief complaint: OPB Narrative: Operative Date/Time/Diagnoses Date of procedure: 12/19/22 Time of procedure: 11:00 Pre-op diagnosis: Right hip OA Post-op diagnosis: same Procedure & Clinicians Procedure: Right total hip arthroplasty anterior approach Same procedure as scheduled: Yes Indications: The patient has had progressively worsening right hip pain with radiographic changes consistent with arthritis. Non-operative management has failed and the patient has requested total hip replacement. The risks, benefits and alternatives to surgery were discussed with the patient prior to proceeding. Risks discussed included, but were not limited to, failure to relieve pain, leg length discrepancy, dislocation, stiffness, infection, nerve damage, deep venous thrombosis, pulmonary embolism, stroke, coma, heart attack, permanent paralysis and , as well as the potential need for eventual revision of the prosthetic. Surgeon: Sierra Sosa [place] [employer] Manager: Guero Alvarez Anesthesia Type: General and Spinal Operative Notes Findings: Severe right hip OA, adequate bone, adequate stability Closure Type: primary Specimen(s): none sent Prosthetic devices, grafts, tissues, transplants, or devices: Sosa and nephew R3 56, neutral poly liner, one 6.5 mm screw, polar stem standard offset size 3, +0 Oxinium head by 36 Estimated Blood Loss (mL): 250 Blood products transfused: none Discharge Providers Provider Discharge Date: 12/20/22 Consults: 12/19/22 06:00 Consult to Anesthesiology Routine Comment: Consulting Provider: Anesthesiologist Reason for consultation: Regional block for post operative pain control 12/19/22 14:06 Consult to Discharge Planning Routine Comment: Consult to Occupational Therapy Evaluate & Treat Comment: Physician Instructions: Evaluate and treat Consult to Physical Therapy Evaluate & Treat Comment: Physician Instructions: post op CALIXTO protocol Discharge provider: Leny Stover PA-C Summary Hospital Course Discharge Diagnosis: Right hip osteoarthritis, s/p right total hip arthroplasty Hospital Course: Mr Hanson's hospital course was unremarkable. On the morning of POD# 1 he was feeling well and wanted to go home. He was eating and voiding without difficulty and his pain was well-controlled with oral medication. He had not yet been evaluated by PT but had been OOB. Exam Vital Signs (past 8 hours): - 12/20/22 00:00 Temperature 97.7 F Pulse Rate 74 Respiratory Rate 17 Blood Pressure 122/84 Pulse Oximetry 98 Oxygen Flow Rate 0 Oxygen Delivery Method Room Air Oxygen Flow Rate 0 Narrative Exam Narrative: 5/5 strength in hip flexors, quadriceps, hamstrings, PF, DF, EHL on right. Sensation to light touch intact throughout RLE. Right calf soft, compressible, nontender. Aquacel dressing CDI. Objective Labs 12/20/22 04:37 Labs: Laboratory Results - last 24 hr 12/20/22 04:37 Hgb 12.8 L Hct 36.1 L PFSH Medical History (Updated 12/12/22 @ 13:52 by Henna Hobson RN) LBBB (left bundle branch block) Psoriasis BPH (benign prostatic hyperplasia) GERD (gastroesophageal reflux disease) Osteoarthritis Surgical History (Updated 12/12/22 @ 13:43 by Henna Hobson RN) History of total left hip replacement (09/21/22) History of colonoscopy [place] teeth extracted Hx of tonsillectomy Social History household members: spouse Smoking Status: Never smoker alcohol intake: current Discharge Assessment & Plan Assessment and Plan Assessment: Right hip osteoarthritis, s/p right total hip arthroplasty Plan of Treatment: Discharge home after PT if PT agrees. ASA BID x 6 weeks for VTE prophylaxis, multimodal pain control; pt has all postop rxs. F/u in office in 2 weeks as scheduled. Discharge Plan Discharge Plan Patient Disposition: Home Discharge orders & Medications Discharge Orders: Discharge (Order); Ordered 12/20/22 Ordered By: Leny Stover Prescriptions: Continued tamsulosin 0.4 mg Capsule 0.4 mg PO DAILY omeprazole 20 mg Tablet,Delayed Release (Dr/Ec) 20 mg PO DAILY cholecalciferol (vitamin D3) [Vitamin D3] 125 mcg (5,000 unit) Tablet 125 mcg PO DAILY omega 1-smy-hvx-fish oil [Fish Oil] 300-1,000 mg Capsule 1 cap PO DAILY Follow up/Referrals: Sierra Sosa MD [Physician] - As previously scheduled (Follow up with Willy Alvarez PA-C on 01/02 at 3:30 at [facility] in [place]. ) Diet/Activity/Treatments Diet: Diet as Tolerated Activity: weight bearing as tolerated on right leg, anterior hip precautions x6 weeks Cold/Heat Therapy: ice to hip as needed for pain Skin/Wound/Dressing Care Report to your healthcare provider any signs of infection, such as:: chills, fever, night sweats, unusual drainage and unusual redness Dressing: Leave dressing in place until office follow up, okay to shower with dressing. If water gets under dressing or dressing becomes saturated please call our office. Visit Report/Discharge Packet Instructions: DI for Hip Replacement, DI for Prescription Opioid Use Stand Alone Forms: Patient Portal/API, Surgery Discharge Discharge Data Attending Provider: Sierra Sosa
--- NOTE | 2022-12-20 09:20 | PT.IPTN ---
Current Diagnoses Unilateral primary osteoarthritis, right hip (12/19/22) Surgery Performed Operation Date: 12/19/22 10:45 Actual Procedures p Total Hip Arthroplasty/Anterior Approach(Right) - Sierra Sosa MD Physical Therapy Treatment Note M2 PT-IP Current Condition Start: 12/19/22 16:28 Freq: NEEDED Status: Active Protocol: Document 12/19/22 16:28 AB (Rec: 12/19/22 16:57 AB [id number]) Physical Therapy Current Condition Current Condition Evaluation Date 12/19/22 Treatment Diagnosis s/p right anterior CALIXTO Onset Date 12/19/22 M3 PT-IP Subjective Start: 12/19/22 16:28 Freq: NEEDED Status: Active Protocol: Document 12/20/22 10:15 TS (Rec: 12/20/22 10:29 TS [id number]) Subjective Physical Therapy Visit Type Type Treatment Note Visit Start Time 09:20 Visit Stop Time 09:41 Total Visit Minutes 21 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 Therapy Pain Assessment Pain When Pain Assessed During Mobility Pain Present Pain Present Pain Reported M4 PT-IP Mobility and Gait Start: 12/19/22 16:28 Freq: NEEDED Status: Active Protocol: Document 12/20/22 10:15 TS (Rec: 12/20/22 10:29 TS [id number]) PT-Bed Mobility Assessment Supine to Sit Supine to Sit Standby Assistance Sit to Supine Sit to Supine Standby Assistance Scooting Scooting to Edge of Bed Standby Assistance PT-Transfer Assessment Sit to and From Stand Sit to and from Stand Standby Assistance,Use of Upper Extremities Equipment Transfer Assistive Device Gait Belt,Front Wheeled Walker Comments Mobility Comments Supine to sit SBA with BUE support and HOB slightly raised. Sit to stand with FWW SBA, pt has good standing balance with no retroleaning. He ambulated ~300'SBA with FWW , initially with slow step to gait, progressed to emerging step thru gait. He performed stairs x3 with handrail assist SBA,had no buckling or LOB. Pt was left back in bed, all needs met. Gait Assessment Gait Gait Assistance Required: Standby Assistance Distance (Feet) 300 Assistive Devices Assistive Device Gait Belt,Front Wheeled Walker Gait Deviations General Gait Pattern Antalgic,Decreased Stride Length,Decreased Feet Clearance,Step-to Gait Factors Limiting Gait Function Factors Limiting Gait Function Decreased Activity Tolerance, Decreased Sensation,Decreased Strength,Limited Range of Motion Comments Gait Comments See mobility comments. Stair Climbing Assessment Evaluation Level of Assist On Stairs Standby Assistance Devices Stair Climbing Assistive Devices Left Railing,Right Railing Technique/Endurance Stair Climbing Direction Ascend and Descend Stair Climbing Technique Step to Step Number of Steps Climbed 3 Comments Stair Climbing Comments See mobility comments. PT-Balance Assessment Sitting Balance and Reactions Static Sitting Balance Ability Normal Dynamic Sitting Balance Ability Normal Standing Balance and Reactions Static Standing Balance Ability Normal Dynamic Standing Balance Ability Good Device Used FWW M5 PT-IP Objective Assessments Start: 12/19/22 16:28 Freq: NEEDED Status: Active Protocol: Document 12/19/22 16:28 AB (Rec: 12/19/22 16:57 AB [id number]) Orientation Orientation/Cognition Level of Alertness Alert Orientation Name,Age,Birthday,Month,Date, Year,Day of Week,Place, Situation Language Function Ability No Deficits Noted Safety Awareness Understands Safety Issues Memory Description No Deficits Noted Gross Range of Motion Upper Extremity ROM Assessment Within Functional Limits Lower Extremity ROM Assessment Right Impaired Strength Upper Extremity Strength Assessment Within Functional Limits Lower Extremity Strength Assessment Within Functional Limits Sensation Assessment Sensation Gross Sensation Left LE Impaired Sensation Description Numbness M6 PT-IP Treatment Start: 12/19/22 16:28 Freq: NEEDED Status: Active Protocol: Document 12/20/22 10:15 TS (Rec: 12/20/22 10:29 TS [id number]) Physical Therapy Treatment Education Education Provided Precautions,Weight Bearing Status,Post-Op Packet,Safety M7 PT-IP Assessment and Plan Start: 12/19/22 16:28 Freq: NEEDED Status: Active Protocol: Document 12/20/22 10:15 TS (Rec: 12/20/22 10:29 TS [id number]) PT Summary Assessment and Plan Potential Rehabilitation Potential Excellent Summary Impairments Pain,ROM,Strength,Balance, Sensation,Bed Mobility, Transfers,Gait,Activity Tolerance Progress Towards Goals Progressing Toward Goals Assessment Summary Luther is making good progress with his mobility. He is SBA for bed mobility with use of BUE support. He progressed his gait to ~300' SBA with use of FWW. He performed stairs x3 step to step with B handrails, had no buckling or LOB. PT is recommending pt return home with assist and outpatient PT. Goals Bed Mobility Goal Independent Transfer Goal Independent,Front Wheeled Walker Gait Goal Independent,Front Wheel Walker Gait Distance 150 Other Goals Pt to ascend/descend 3 steps with use of LRAD and SBA to show improving strength and stability. Pt to ambulated 150ft [place] with FWW or LRAD to show improving strength and tolerance to activity. Pt to perform transfer with LRAD to show improving level of function. Days to Meet Goals 5 Frequency of Treatment Frequency Of Treatment Twice a Day Treatment Plan Physical Therapy Treatment Plan Bed Mobility Training,Transfer Training,Gait Training, Therapeutic Exercise,Balance Retraining,Post Op Education, Discharge Planning,Hot or Cold Pack,Neuromuscular Re-ed, Coordination Retraining,Manual Therapy Other Recommendations and Next Treatment Continue to progress gait, Focus stairs and transfers. Precautions Anterior Hip Precautions No Hip Extension,No Hip External Rotation Weight Bearing Status Weight Bearing Status Weight Bear as Tolerated Recommendations To Nursing Amount of Assist Needed Standby Assistance Discharge Recommendations PT Discharge Recommendations Home with Assistance, Outpatient PT Transportation Needs at Discharge Private Vehicle,Wheelchair/ Cabulance
[2022-12-20 09:49] VITALS: BP 119/55; PULSE 85; RESP 18; TEMP 36.8; O2SAT 96
[2022-12-20] MEDS: ASPIRIN EC 81 MG TABLET PO (09:50)
[2022-12-20] MEDS: FISH OIL 1,000 MG CAPSULE 1000 MG PO (09:50)
[2022-12-20] MEDS: CHOLECALCIFEROL (VITAMIN D3) 5,000 UNIT TABLET 5000 UNIT PO (09:50)
[2022-12-20] MEDS: DOCUSATE 100 MG CAPSULE PO (09:50)
[2022-12-20] MEDS: TAMSULOSIN 0.4 MG CAPSULE PO (09:50)
--- NOTE | 2022-12-20 10:50 | CM.DANOTE ---
Reviewed EMR and team rounds for pt's medical status and anticipated d/c needs. Met with pt at bedside to introduce self and role, post-op day 1. He was found to be alert/oriented, and expressed already feeling relief from the surgery. Payor: [facility] Attending: Sierra Sosa Pt is a 62 year-old M placed in a surgical day bed post-total R-hip arthroplasty. He had been experiencing progressively worsening R-hip pain w/no benefit from OP therapies. Surgery was completed yesterday. Plan is for pt to be d/c home around noon today, will transport. Recommended OP PT and Ortho f/u in 2-weeks. No further DCP needs identified at this time. Discharge Planning/Care Management CM Discharge Assessment Start: 12/20/22 10:47 Freq: Status: Active Protocol: Document 12/20/22 10:48 DPL (Rec: 12/20/22 10:50 DPL [id number]) Discharge Planning Assessment Assigned Hearing Aid Fitter JULI Ramirez Advance Directives? No History Provided By Patient,Medical Record Has Patient been admitted in last 30 No days? Prior Living Arrangements House Household Members spouse Type of transporation used prior to Drives own vehicle admit Independent with ADL's Yes Is patient alert and oriented? Yes Caregiver for Another No Comment No anticipated home d/c needs. Barriers to Discharge No Discharge Plan Home Community Services Physical Therapy Transportation Arrangement Spouse Referrals Initiated None needed Whiteboard Updated in Patient Room with Yes name and ext. # of Hearing Aid Fitter Review Status In Process Please Provide Date Initial DC 12/20/22 Assessment Was Performed Pre-Anesthesia Assessment Start: 12/12/22 13:42 Freq: Status: Complete Protocol: Document 12/12/22 13:42 CAB (Rec: 12/12/22 14:09 CAB [id number]) Pre-Anesthesia Assessment Preferred Name Moe Patient Information Reviewed Via Phone Assessment Assessment Completed With Patient Diagnostic Results BMP/CMP,CBC,EKG Comment Outside labs/EKG scanned Primary Care Provider Sangeetha Nash Seen Specialist in Last 12 Months Yes Specialist Seen Orthopedist Primary Language Par[place]ayan Preferred Language Par[place]ayan Commercial Finance Manager Required No Height 167.64 cm Weight 70.76 kg Body Mass Index (BMI) 25.2 Hearing Ability Hearing Impaired Visual Impairment Partially Limited Visual Assist Glasses Dentition Type Teeth, Natural Present Barriers to Learning None Other Aids No Hx Anesthesia Reactions No Hx Family Anesthesia Reaction No Hx Malignant Hyperthermia No Hx Blood Transfusions No Hx Blood Transfusion Reaction No Anesthesia Review Requested No Tandem Mill Roller No alcohol intake current alcohol intake frequency a few times a week Smoking Status Never smoker Substance Use Type does not use Pain Present Pain Reported Musculoskeletal Symptoms Difficulty Walking,Joint Pain, Joint Stiffness History of Falling (Recent or History of No ) Patient is completely paralyzed or No completely immobile Mental Status Oriented to own ability Is patient on oxygen? No Does patient have WHITING/SOB No Hx Sleep Apnea No CPAP/BIPAP use not prescribed Currently Taking a Beta Nemo No Can You Climb a Flight of Stairs Without Yes SOB Hx Chest Pain No Hx SOB No Hx Syncope or Dizziness No Anti-Coagulant Therapy No Has a Summer Camp Counselor No Cardiac Testing No Hx Pacemaker/ICD No Pacemaker Rep Required? No Cardiac Clearance Received Not Applicable Diet Type At Home Regular Dysphagia No Gastrointestinal Symptoms None Urinary Catheter Present No Hx Urinary Self Catheterization No Diabetes No HgbA1C 4.6 Date 07/05/22 Hx Drug Resistant Organism No Presence of External or Internal Medical No Devices Have you had any close contact with No someone diagnosed with COVID-19? Received a COVID vaccine? Yes Received all doses? Yes Marital Status Lives With spouse Current Living Arrangements House Number of Floors (Floors) Two Floors Number of Stairs To Enter/Railing? patient does not need to go upstairs, 3 steps to get into home Support System Spouse Does the Patient Have Assistance After Yes Surgery Patient Discharge Plan Description Return Home Comment Pt advised overnight length of stay per surgeon Feels Safe in Current Environment Yes Been Physically Hurt or Threatened By a No Person in Current Environment Do you have thoughts of harming yourself None or others? Are you currently considering suicide? No Do you have a plan to hurt yourself or No Plan others? Do You Have Any Spiritual Beliefs That No May Affect Your HC Choices? Do You Have Any Cultural Practices That No May Affect Your HC Choices? Who Can We Speak to About Patient's Care Family, friends Identifying Code for Release of Patient Declines to issue Information Health Care Proxy/Next of Kin Carlota () Health Care Proxy Emergency Contact Name Carlota () Emergency Contact Advance Directives? No Power of Bobbin Loose End Finder No PAC Instructions Durable medical equipment, Medications to take/avoid, Nasal antibiotic,No ETOH/ petroleum product on skin DOS, NPO,Pre-surgical wash,Sensory aids,Sturdy shoes/comfortable clothes,Do not bring valuables and remove jewelry
--- NOTE | 2022-12-20 12:19 | PC.NURSE ---
Day shift: Discharge instructions gone over with patient and patient's spouse. All questions answered and they stated understanding. PIV removed prior to d/c. All belongings with patient. ANDRES Nicole escorted patient to exit via wheelchair.
== END 2022-12-20 12:20 | disposition home or self-care (01) ==
LOC: OR 08:27 → AC 08:27
PROVIDERS: Referring Provider Orthopaedic Surgery; Visit Provider Orthopaedic Surgery
PROC: (CPT 27130; principal; 2022-12-19 10:45)
DX: M16.11 Unilateral primary osteoarthritis, right hip (principal)
CPT/HCPCS: 27130; 36415; 73502; 76000; 85014; 85018; 97110; 97530; 97535; C1776; A9270; C9290; J0171; J0690; J1100; J2250; J2405; J2704; J3010; J3490

== ENCOUNTER 2024-05-23 07:43 | Emergency (ER) | payer OTHER, SELFPAY ==
[2022-12-19 14:27] VITALS: BMI 24.1
[2024-05-23] VITALS (32 sets, daily range): BP systolic 140–224; BP diastolic 78–141; PULSE 72–104; RESP 11–58; TEMP 36.7; O2SAT 94–99; BMI 25.0
--- NOTE | 2024-05-23 07:56 | DI.CT.S_ITS ---
PROCEDURE: CT ANGIO HEAD AND NECK INDICATIONS: hypertensive, nausea, headache TECHNIQUE: After the administration of intravenous contrast, 1 mm thick sections acquired from the aortic arch through the Grahn of [place]. 3-dimensional nfkkozr-nlmzfwdfk-jyncoeutqw (MIP) and/or volume rendering reformats were acquired of the central intracranial vasculature and neck separately. For radiation dose reduction, the following was used: automated exposure control, adjustment of mA and/or kV according to patient size. COMPARISON: [facility], CT, CT HEAD/BRAIN WO [facility], 05/23/2024, 8:31. FINDINGS: Image quality: Diagnostic. BRAIN: Please see the separately dictated report from the noncontrast CT head performed at the same time. No abnormal intracranial arterial-phase enhancement. HEAD CT ANGIOGRAPHY: Anterior circulation: Intracranial internal carotid arteries are normal in size and flow. The flow within the paired anterior cerebral arteries is normal and symmetric. The flow within the middle cerebral arteries is normal and symmetric. The anterior communicating artery is seen. No aneurysms are seen. Posterior circulation: Visualized portions of the vertebral arteries demonstrate normal caliber, and join to form a normal appearing basilar artery. Flow within the posterior cerebral arteries is normal and symmetric. No aneurysms are seen. NECK CT ANGIOGRAPHY: Carotid system: The great vessels demonstrate a conventional anatomy as they arise from the aortic arch. The origins of the common carotid arteries appear patent. The common carotid arteries demonstrate normal caliber and courses. The bifurcation regions are both widely patent. The internal carotid arteries demonstrate normal calibers and courses. Posterior circulation: The origins of the vertebral arteries both appear widely patent. Right vertebral artery is congenitally dominant. Multilevel cervical degenerative changes result in multifocal mild to moderate narrowing of the left vertebral artery, most notably at the C5-6 level on the left (3/212). The more superior extracranial portions of both vertebral arteries also demonstrate normal courses and calibers. They join to form a normal appearing basilar artery. Soft tissues: Visualized neck soft tissues demonstrate no suspicious abnormalities. Bones: No suspicious bony lesions. Moderate to severe degenerative changes in the included cervical spine without definite high-grade bony spinal canal narrowing. IMPRESSION: 1. No significant intracranial arterial abnormality is seen. 2. Multifocal mild to moderate narrowing of the extracranial left vertebral artery secondary to cervical spine degenerative changes. Any quantitative measurements of stenosis were performed using NASCET criteria. Approved by: Maverick Barney M.D. on 05/23/2024 at 8:54
--- NOTE | 2024-05-23 07:56 | DI.CT.S_ITS ---
PROCEDURE: CT HEAD/BRAIN WO CON INDICATIONS: hypertensive, nausea, headache TECHNIQUE: Noncontrast 4.5 mm thick angled axial sections acquired from the foramen magnum to the vertex, with coronal and sagittal reformats. For radiation dose reduction, the following was used: automated exposure control, adjustment of mA and/or kV according to patient size. COMPARISON: None. FINDINGS: Image quality: Diagnostic. CSF spaces: Basal cisterns are patent. No extra-axial fluid collections. The ventricles are symmetric in size and shape. Brain: No acute intracranial hemorrhage or mass effect. There is cerebral volume loss for age, with resultant ventricular and sulcal prominence. There are periventricular and deep white matter chronic small vessel ischemic changes. There is intracranial internal carotid artery atherosclerosis. Skull and face: Calvarium and visualized facial bones appear intact, without suspicious lesions. Sinuses: Partial opacification of the right sphenoid sinus and right posterior ethmoid air cells. Visualized sinuses are otherwise clear. Left mastoid effusion is present. Right mastoid air cells are clear. IMPRESSION: 1. No acute intracranial pathology. 2. Mild chronic microvascular ischemic changes and age related parenchymal volume loss. 3. Right sphenoid sinus disease and left mastoid effusion. Approved by: Maverick Barney M.D. on 05/23/2024 at 8:46
--- NOTE | 2024-05-23 07:57 | DI.RAD.S_ITS ---
PROCEDURE: XR CHEST 1V INDICATIONS: Possible stroke TECHNIQUE: One view of the chest was acquired. COMPARISON: None. FINDINGS: Surgical changes and devices: None. Lungs and pleura: Lungs are clear. No pleural effusions or pneumothorax. Mediastinum: Mediastinal contours appear normal. Heart size is normal. Bones and chest wall: No suspicious bony lesions. Overlying soft tissues appear unremarkable. IMPRESSION: No acute cardiopulmonary abnormality is seen. Approved by: Maverick Barney M.D. on 05/23/2024 at 8:32
--- NOTE | 2024-05-23 08:03 | EKG_ITS ---
[address] [id number] [address], [place] [address] Test Date: 2024-05-23 Pat Name: Luther Hanson Department: Room: Gender: Male Credit Products Officer: LEXY : 1960 Requested By: Order Number: [id number] Reading MD: Hardik Jackson Measurements Intervals [place] Rate: 75 P: 7 W[place]: 166 QRS: -15 QRSD: 92 T: 32 QT: 368 QTc: 410 Interpretive Statements Normal sinus rhythm Electronically Signed On 05-27-2024 20:09:08 PDT by Hardik Jackson
[2024-05-23 08:07] LABS: Add Manual Diff / Slide Review NO; Basophils Absolute Auto 0 /uL (0-100); Basophils Percent Auto 0.4 % (0-2); Eosinophils Absolute Auto 200 /uL (0-450); Eosinophils Percent Auto 4.1 % (2-4); Hematocrit 44.3 % (41-53); Hemoglobin 15.6 g/dL (13.5-17.5); Lymphocytes Absolute Auto 1500 /uL (1100-4500); Lymphocytes Percent Auto 25.5 % (25-40); Mean Corpuscular HGB Conc 35.1 % (30-36); Mean Corpuscular Hemoglobin 31.2 PG (26-34); Mean Corpuscular Volume 88.6 fL (80-100); Monocytes Absolute Auto 400 /uL (0-900); Monocytes Percent Auto 7.3 % (3-14); Neutrophils Absolute Auto 3700 /uL (1500-7000); Neutrophils Percent Auto 62.7 % (50-75); Platelet Count 212 X10^3/uL (150-400); Red Cell Distribution Width 13.3 % (11.6-14.8); White Blood Cell Count 5.9 X10^3/uL (4.5-11.0)
[2024-05-23 08:08] LABS: Prothrombin Time 11.8 SECONDS (9.4-12.5)
[2024-05-23 08:11] LABS: PTT Partial Thromboplastin Tim 32 SECONDS (25.1-36.5)
[2024-05-23 08:15] LABS: Alanine Aminotransferase 26 IU/L (<50); Albumin 4.4 g/dL (3.5-5.0); Albumin Globulin Ratio 1.6 (1.0-2.8); Alkaline Phosphatase 92 U/L (38-126); Aspartate Aminotransferase 27 IU/L (17-59); BUN Creatinine Ratio 18.3 (6-22); Bilirubin Total 0.9 mg/dL (0.2-1.3); Blood Urea Nitrogen 15 mg/dL (9-20); Calcium 9.6 mg/dL (8.4-10.2); Carbon Dioxide 29 mmol/L (22-32); Chloride 102 mmol/L (98-107); Creatine Kinase 56 U/L (55-170); Estimated Glomerular Filt Rate > 60 mL/min (>60); Globulin 2.8 g/dL (1.7-4.1); Glucose 127 mg/dL (80-110); HEMOLYSIS < 15 (0-50); Magnesium 1.7 mg/dL (1.6-2.3); Sodium 137 mmol/L (137-145); Total Protein 7.2 g/dL (6.3-8.2)
--- NOTE | 2024-05-23 08:17 | ED.NEUROSD ---
HPI - Neuro Symptoms/Deficit General Chief Complaint: Neuro Symptoms/Deficit Stated Complaint: Something is wrong, Possible Stroke Time Seen by Provider: 05/23/24 07:47 History of Present Illness HPI Narrative: Patient is a 64-year-old male who has past medical history BPH, presenting today with not feeling quite right. He reports that he went to bed last night normal he woke up this morning had breakfast but could tell something was off. Drove to work and felt like maybe he should not be driving. Denies any sort of headache nausea vomiting he was like both fingertips are kind of cold and tingly but no real weakness or numbness. No speech difficulty but having trouble remembering why he was here what he ate for breakfast. He has no facial droop no slurring or dysarthria. On Anticoagulants: No Related Data Home Medications Medication Instructions Recorded Confirmed cholecalciferol (vitamin D3) 125 125 mcg PO DAILY 09/13/22 12/12/22 mcg (5,000 unit) tablet (Vitamin D3) omega 7-kah-kic-fish oil 300 1 cap PO DAILY 09/13/22 12/12/22 mg-1,000 mg capsule (Fish Oil) omeprazole 20 mg tablet,delayed 20 mg PO DAILY 09/13/22 12/19/22 release tamsulosin 0.4 mg capsule 0.4 mg PO DAILY 09/13/22 12/19/22 Allergies Allergy/AdvReac Type Severity Reaction Status Date / Time bee venom protein (honey bee) Allergy Severe Anaphylaxis Verified 12/19/22 08:49 Review of Systems Hematologic/Lymphatic On Anticoagulants: No Patient History Medical History LBBB (left bundle branch block) Psoriasis BPH (benign prostatic hyperplasia) GERD (gastroesophageal reflux disease) Osteoarthritis Surgical History 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 HEENT: Head atraumatic,EOMI, pupils reactive, face symmetric, moist mucous membranes CARDIOVASCULAR: Regular rate and rhythm without murmurs, rubs or gallops. RESPIRATORY: Breath sounds equal bilaterally, no wheezes rales or rhonchi. ABDOMEN: Soft, nontender. Normoactive bowel sounds all 4 quadrants. No guarding or rebound. EXTREMITIES: Normal range of motion, no clubbing or edema. Neurovascularly intact NEUROLOGICAL: Alert and oriented x4.Normal gait and speech. Cranial nerves II through XII grossly intact. Good vaxpje-fj-obxm, good uulv-ba-wuzf, strength equal bilaterally, no dysarthria or aphasia, sensation in tact to soft touch bilaterally, no visual changes, no facial droop SKIN: Warm, dry, no laceration, no petechiae, no rashes or lesions. Scores NIH Stroke Scale Level of Conciousness: Alert, keenly responsive Ask month/age: Answers both questions correctly. Open/close eyes, close hand: Performs both tasks correctly Best gaze horizontal: Normal Visual dillon: No visual loss Facial palsy: Normal symetrical movement Left arm drift: No drift for full 10 sec Right arm drift: No drift for full 10 sec Left leg drift: No drift for full 5 sec Right leg drift: No drift for full 5 sec Limb ataxia: Absent Sensory on face/arms/legs: Normal, no sensory loss Best language: No aphasia, normal Dysarthria: Normal Extinction or inattention: No abnormality Total NIH Stroke scale score: 0 Course Orders Ordered: ED Orders 05/23/24 07:55 Complete Blood Count AUTO DIFF Stat Comprehensive Metabolic Panel Stat Magnesium Stat PTT Partial Thromboplastin Issac Stat Prothrombin Time INR Stat Troponin & CK Cardiac Panel Stat 05/23/24 07:56 CT angio head and neck Stat CT head/brain wo con Stat 05/23/24 07:57 XR chest 1V Stat EKG-12 Lead Stat 05/23/24 08:01 Urine Drug Screen, Rapid Stat 05/23/24 09:36 EKG-12 Lead Stat 05/23/24 09:51 MR head/brain wo con Stat 05/23/24 09:55 Trop I [Troponin I] Stat Discontinued Medications Aspirin (Aspirin Ec 325 Mg Tablet) 325 mg PO NOW ONE Stop: 05/23/24 11:16 Last Admin: 05/23/24 11:29 Dose: 325 mg Documented By: BROOK Ondansetron HCl (Ondansetron 4 Mg/2 Ml Inj) 4 mg IV NOW PRN PRN Reason: Nausea And Vomiting Last Admin: 05/23/24 08:47 Dose: 4 mg Documented By: RB Ondansetron HCl (Ondansetron 4 Mg Odt) 4 mg SL NOW PRN PRN Reason: Nausea And Vomiting Vital Signs Vital signs: Vital Signs - 8 hr 05/23/24 07:51 05/23/24 07:53 05/23/24 07:55 Temperature 98.1 F Pulse Rate 86 96 H Respiratory Rate 58 H 20 Blood Pressure 224/141 H 196/101 H Pulse Oximetry 99 99 Oxygen Delivery Method Room Air 05/23/24 07:55 05/23/24 08:03 05/23/24 08:05 Temperature Pulse Rate 79 91 H 84 Respiratory Rate 21 Blood Pressure Pulse Oximetry 99 99 99 Oxygen Delivery Method 05/23/24 08:05 05/23/24 08:11 05/23/24 08:11 Temperature Pulse Rate 80 Respiratory Rate Blood Pressure 208/96 H 186/91 H Pulse Oximetry 99 Oxygen Delivery Method 05/23/24 08:15 05/23/24 08:15 05/23/24 08:20 Temperature Pulse Rate 76 Respiratory Rate Blood Pressure 178/96 H 179/98 H Pulse Oximetry 94 Oxygen Delivery Method 05/23/24 08:20 05/23/24 08:38 05/23/24 08:39 Temperature Pulse Rate 72 81 80 Respiratory Rate 11 L Blood Pressure Pulse Oximetry 95 99 97 Oxygen Delivery Method 05/23/24 08:39 05/23/24 08:40 05/23/24 08:40 Temperature Pulse Rate 79 Respiratory Rate 14 Blood Pressure 192/93 H 188/102 H Pulse Oximetry 95 Oxygen Delivery Method 05/23/24 08:45 05/23/24 08:45 05/23/24 08:50 Temperature Pulse Rate 84 81 Respiratory Rate 16 14 Blood Pressure 173/89 H Pulse Oximetry 96 97 Oxygen Delivery Method 05/23/24 08:50 05/23/24 08:55 05/23/24 08:55 Temperature Pulse Rate 81 Respiratory Rate 19 Blood Pressure 178/92 H 175/94 H Pulse Oximetry 95 Oxygen Delivery Method 05/23/24 09:00 05/23/24 09:00 05/23/24 09:12 Temperature Pulse Rate 81 80 Respiratory Rate 15 14 Blood Pressure 160/91 H Pulse Oximetry 96 97 Oxygen Delivery Method 05/23/24 09:12 05/23/24 09:15 05/23/24 09:15 Temperature Pulse Rate 83 Respiratory Rate 23 Blood Pressure 181/94 H 163/93 H Pulse Oximetry 96 Oxygen Delivery Method 05/23/24 09:25 05/23/24 09:25 05/23/24 09:30 Temperature Pulse Rate 78 Respiratory Rate 18 Blood Pressure 183/97 H 166/97 H Pulse Oximetry 96 Oxygen Delivery Method 05/23/24 09:30 05/23/24 09:35 05/23/24 09:35 Temperature Pulse Rate 81 81 Respiratory Rate 17 18 Blood Pressure 165/95 H Pulse Oximetry 95 95 Oxygen Delivery Method 05/23/24 09:40 05/23/24 09:40 05/23/24 09:45 Temperature Pulse Rate 86 Respiratory Rate 22 Blood Pressure 164/90 H 154/91 H Pulse Oximetry 95 Oxygen Delivery Method 05/23/24 09:45 05/23/24 09:50 05/23/24 09:50 Temperature Pulse Rate 88 90 Respiratory Rate 23 Blood Pressure 161/97 H Pulse Oximetry 95 95 Oxygen Delivery Method 05/23/24 09:55 05/23/24 11:07 05/23/24 11:08 Temperature Pulse Rate 82 104 H Respiratory Rate 20 Blood Pressure 160/86 H Pulse Oximetry 97 Oxygen Delivery Method 05/23/24 11:08 05/23/24 11:10 05/23/24 11:10 Temperature Pulse Rate 94 H 91 H Respiratory Rate 17 13 Blood Pressure 148/82 H Pulse Oximetry Oxygen Delivery Method 05/23/24 11:15 05/23/24 11:15 05/23/24 11:20 Temperature Pulse Rate 90 Respiratory Rate 17 Blood Pressure 140/78 150/84 H Pulse Oximetry 94 Oxygen Delivery Method 05/23/24 11:20 05/23/24 11:25 05/23/24 11:26 Temperature Pulse Rate 95 H 103 H Respiratory Rate 19 Blood Pressure 158/96 H Pulse Oximetry 96 94 Oxygen Delivery Method 05/23/24 11:26 05/23/24 11:30 Temperature Pulse Rate 95 H 99 H Respiratory Rate 22 22 Blood Pressure Pulse Oximetry 95 Oxygen Delivery Method MDM - Neuro Symptoms/Deficit Lab Data 05/23/24 07:55 05/23/24 07:55 Labs: Lab Results 05/23/24 05/23/24 05/23/24 Range/Units 07:55 08:01 09:55 WBC 5.9 (4.5-11.0) X10^3/uL RBC 5.00 (4.5-5.9) X10^6/uL Hgb 15.6 (13.5-17.5) g/dL Hct 44.3 (41-53) % MCV 88.6 (80-100) fL MCH 31.2 (26-34) PG MCHC 35.1 (30-36) % RDW 13.3 (11.6-14.8) % Plt Count 212 (150-400) X10^3/uL Neut % (Auto) 62.7 (50-75) % Lymph % (Auto) 25.5 (25-40) % Cooper % (Auto) 7.3 (3-14) % Eos % (Auto) 4.1 H (2-4) % Baso % (Auto) 0.4 (0-2) % Neut # (Auto) 3700 (1887-0522) /uL Lymph # (Auto) 1500 (4323-3486) /uL Cooper # (Auto) 400 (0-900) /uL Eos # (Auto) 200 (0-450) /uL Baso # (Auto) 0 (0-100) /uL PT 11.8 (9.4-12.5) SECONDS INR 1.0 (0.9-1.3) APTT 32 (25.1-36.5) SECONDS Sodium 137 (137-145) mmol/L Potassium 4.0 (3.4-5.1) mmol/L Chloride 102 (98-107) mmol/L Carbon Dioxide 29 (22-32) mmol/L BUN 15 (9-20) mg/dL Creatinine 0.82 (0.66-1.25) mg/dL Estimated GFR > 60 (>60) mL/min BUN/Creatinine Ratio 18.3 (6-22) Glucose 127 H (80-110) mg/dL Calcium 9.6 (8.4-10.2) mg/dL Magnesium 1.7 (1.6-2.3) mg/dL Total Bilirubin 0.9 (0.2-1.3) mg/dL AST 27 (17-59) IU/L ALT 26 (<50) IU/L Alkaline Phosphatase 92 (38-126) U/L Total Creatine Kinase 56 (55-170) U/L Troponin I < 0.012 < 0.012 (0.01-0.034) ng/mL Total Protein 7.2 (6.3-8.2) g/dL Albumin 4.4 (3.5-5.0) g/dL Globulin 2.8 (1.7-4.1) g/dL Albumin/Globulin Ratio 1.6 (1.0-2.8) U Opiates 300ng/mL cut Negative (Negative) Ur Oxycodone Screen Negative (Negative) Urine Methadone Screen Negative (Negative) Ur Barbiturates Screen Negative (Negative) U Tricyclic Antidepress Negative (Negative) Ur Phencyclidine Scrn Negative (Negative) Ur Amphetamines Screen Negative (Negative) U Methamphetamines Scrn Negative (Negative) Ur MDMA Scrn (Ecstasy) Negative (Negative) U Benzodiazepines Scrn Negative (Negative) Urine Cocaine Screen Negative (Negative) U Marijuana (THC) Screen Negative (Negative) Urine pH Normal (Normal) Urine Specific [place] Normal (Normal) Ur Creatinine Normal (Normal) Urine Dip Bedside Urine Glucose Negative Bedside Urine Bilirubin - Negative Bedside Urine Ketone - Negative Urine Specific [place] 1.010 Bedside Urine Occult Blood - Negative Bedside Urine pH 7.0 Bedside Urine Protein - Negative Bedside Urine Urobilinogen - Negative Bedside Urine Nitrite - Negative Bedside Urine Leukocytes - Negative Esterase Imaging Data CT scan - head: Radiologist's Impression: PROCEDURE: CT HEAD/BRAIN WO CON INDICATIONS: hypertensive, nausea, headache TECHNIQUE: Noncontrast 4.5 mm thick angled axial sections acquired from the foramen magnum to the vertex, with coronal and sagittal reformats. For radiation dose reduction, the following was used: automated exposure control, adjustment of mA and/or kV according to patient size. COMPARISON: None. FINDINGS: Image quality: Diagnostic. CSF spaces: Basal cisterns are patent. No extra-axial fluid collections. The ventricles are symmetric in size and shape. Brain: No acute intracranial hemorrhage or mass effect. There is cerebral volume loss for age, with resultant ventricular and sulcal prominence. There are periventricular and deep white matter chronic small vessel ischemic changes. There is intracranial internal carotid artery atherosclerosis. Skull and face: Calvarium and visualized facial bones appear intact, without suspicious lesions. Sinuses: Partial opacification of the right sphenoid sinus and right posterior ethmoid air cells. Visualized sinuses are otherwise clear. Left mastoid effusion is present. Right mastoid air cells are clear. IMPRESSION: 1. No acute intracranial pathology. 2. Mild chronic microvascular ischemic changes and age related parenchymal volume loss. 3. Right sphenoid sinus disease and left mastoid effusion. Approved by: Maverick Barney M.D. on 05/23/2024 at 8:46 CTA - brain/neck: Radiologist's Impression: PROCEDURE: CT ANGIO HEAD AND NECK INDICATIONS: hypertensive, nausea, headache TECHNIQUE: After the administration of intravenous contrast, 1 mm thick sections acquired from the aortic arch through the [place] of [place]. 3-dimensional caccebg-eptarsego-lqompxxyhl (MIP) and/or volume rendering reformats were acquired of the central intracranial vasculature and neck separately. For radiation dose reduction, the following was used: automated exposure control, adjustment of mA and/or kV according to patient size. COMPARISON: [facility], CT, CT HEAD/BRAIN WO CON, 05/23/2024, 8:31. FINDINGS: Image quality: Diagnostic. BRAIN: Please see the separately dictated report from the noncontrast CT head performed at the same time. No abnormal intracranial arterial-phase enhancement. HEAD CT ANGIOGRAPHY: Anterior circulation: Intracranial internal carotid arteries are normal in size and flow. The flow within the paired anterior cerebral arteries is normal and symmetric. The flow within the middle cerebral arteries is normal and symmetric. The anterior communicating artery is seen. No aneurysms are seen. Posterior circulation: Visualized portions of the vertebral arteries demonstrate normal caliber, and join to form a normal appearing basilar artery. Flow within the posterior cerebral arteries is normal and symmetric. No aneurysms are seen. NECK CT ANGIOGRAPHY: Carotid system: The great vessels demonstrate a conventional anatomy as they arise from the aortic arch. The origins of the common carotid arteries appear patent. The common carotid arteries demonstrate normal caliber and courses. The bifurcation regions are both widely patent. The internal carotid arteries demonstrate normal calibers and courses. Posterior circulation: The origins of the vertebral arteries both appear widely patent. Right vertebral artery is congenitally dominant. Multilevel cervical degenerative changes result in multifocal mild to moderate narrowing of the left vertebral artery, most notably at the C5-6 level on the left (3/212). The more superior extracranial portions of both vertebral arteries also demonstrate normal courses and calibers. They join to form a normal appearing basilar artery. Soft tissues: Visualized neck soft tissues demonstrate no suspicious abnormalities. Bones: No suspicious bony lesions. Moderate to severe degenerative changes in the included cervical spine without definite high-grade bony spinal canal narrowing. IMPRESSION: 1. No significant intracranial arterial abnormality is seen. 2. Multifocal mild to moderate narrowing of the extracranial left vertebral artery secondary to cervical spine degenerative changes. Any quantitative measurements of stenosis were performed using NASCET criteria. Approved by: Maverick Barney M.D. on 05/23/2024 at 8:54 Chest x-ray: Radiologist's Impression: PROCEDURE: XR CHEST 1V INDICATIONS: Possible stroke TECHNIQUE: One view of the chest was acquired. COMPARISON: None. FINDINGS: Surgical changes and devices: None. Lungs and pleura: Lungs are clear. No pleural effusions or pneumothorax. Mediastinum: Mediastinal contours appear normal. Heart size is normal. Bones and chest wall: No suspicious bony lesions. Overlying soft tissues appear unremarkable. IMPRESSION: No acute cardiopulmonary abnormality is seen. Approved by: Maverick Barney M.D. on 05/23/2024 at 8:32 MRI: Radiologist's Impression: PROCEDURE: MR HEAD/BRAIN WO CON INDICATIONS: confusion TIA TECHNIQUE: Non-contrast axial T1 spin echo, axial T2 fast spin echo, sagittal and axial FLAIR, coronal T2 fast spin echo, axial gradient echo, axial diffusion and ADC through the brain. COMPARISON: None. FINDINGS: Image quality: Excellent. CSF spaces: Ventricles appear symmetric in size and shape. Basal cisterns are patent. No extra-axial fluid collections. Brain: No intracranial bleeds or mass effects. There is cerebral volume loss for age. There are minimal periventricular and deep white matter chronic small vessel ischemic changes. Brainstem appears normal. Diffusion-weighted images show no acute infarct. No chronic ischemic insults. Normal intravascular flow voids are present. Skull and face: Calvarial bone marrow is normal in signal. Orbits are normal. Sinuses: Bilateral mastoid effusions, greater on the left. Mucosal thickening is seen in the right sphenoid sinus and posterior ethmoid air cells. IMPRESSION: 1. No acute intracranial hemorrhage or recent infarct. 2. Mild chronic microvascular ischemic changes. 3. Bilateral mastoid effusions. Right sphenoid sinus disease. Approved by: Maverick Barney M.D. on 05/23/2024 at 10:51 ECG Data Attestation: I personally reviewed and interpreted this ECG as follows: Prior ECG tracings: not available for review Interpretation: Normal sinus rhythm rate 75 DE interval once [address] changes no T-wave inversion MDM Narrative Medical decision making narrative: MDM CC: Confusion Complicating co-morbidities: none Data collected from:Patient Medical records reviewed: [ ] Differential considered: CVA TIA infection sepsis dementia Exam documented above, pertinent findings include: Awake alert 64-year-old male NIH stroke scale 0, no focal deficits no visual changes no facial droop mildly confused but able to answer all questions read Lab Test results independently reviewed as above. Pertinent findings: CBC no leukocytosis no anemia CMP no electrolyte abnormality glucose 127 no WAQAR Troponin negative x2 Liver enzyme bilirubin within normal limit Tox screen negative Independently reviewed EKG as above Sinus rhythm does appear to go in and out of arrhythmia but it is regular confirmed by cardiology left bundle. Patient reports that he was told he actually does have something that is abnormal couple years ago after surgery Imaging studies independently reviewed: Consultations: 10:00 Dr. Montanez, cardiology has reviewed patient's rhythm strip. Appears to be going in and out of a left bundle not risk for causing stroke or his problem Treatments: ASA Re-evaluations: Patient feeling completely back to normal. Discussion: Patient is 64-year-old male presenting to day with confusion can not remember some things. Overall workup in the emergency department is reassuring. Blood work does not show any significant abnormality variety of imaging including CT angio head CT and MRI does not show any evidence of acute CVA. Heart rhythm does go in and out of a left bundle-branch block cardiology was consulted no concern at this time. Blood pressure was noted to be high but has come down without any sort of intervention. Possible TIA, but really has not NIH of 0 fast score is 0 lamp score of 0. He just can not pinpoint what exactly is going on but once his brother got into the room he immediately felt better. Unclear exactly what caused his symptoms. Discharge Plan Departure Patient Disposition: Home Clinical Impression: Acute confusion, Left bundle branch block Instructions: DI for Transient Ischemic Attack Activity Restrictions/Additional Instructions: *You have been diagnosed with confusion, left bundle-branch block *What to do: He was full workup in the emergency department including head CT and MRI no evidence of stroke. Your blood pressure is noted to be elevated but it quickly came down. You were found to have a new left bundle-branch which he was going in and out of. *Continue to take medications as directed Aspirin 81 mg daily *Follow up with your primary care provider in 2-3 days or call [phone] Call PCP to schedule follow-up appointment for next week *Return to ER if you should have increased confusion numbness tingling weakness or any new, worsening or concerning symptoms Prescriptions: No Action tamsulosin 0.4 mg Capsule 0.4 mg PO DAILY omeprazole 20 mg Tablet,Delayed Release (Dr/Ec) 20 mg PO DAILY cholecalciferol (vitamin D3) [Vitamin D3] 125 mcg (5,000 unit) Tablet 125 mcg PO DAILY omega 1-eil-dqk-fish oil [Fish Oil] 300-1,000 mg Capsule 1 cap PO DAILY Stand Alone Forms: Patient Portal/API/Survey
[2024-05-23 08:22] LABS: UR Morphine/Opiate cutoff 300 Negative (Negative); Ur Creatinine Normal (Normal); Ur Specific Gravity Normal (Normal); Urine Amphetamines Negative (Negative); Urine Barbiturates Negative (Negative); Urine Benzodiazepines Negative (Negative); Urine Cocaine Negative (Negative); Urine MDMA Negative (Negative); Urine Methadone Negative (Negative); Urine Methamphetamines Negative (Negative); Urine Oxycodone Negative (Negative); Urine Phencyclidine Negative (Negative); Urine Tetrahydrocannabinol Negative (Negative); Urine Tricyclic Antidepressant Negative (Negative); Urine pH Normal (Normal)
[2024-05-23 08:26] LABS: Troponin I < 0.012 ng/mL (0.01-0.034)
[2024-05-23] MEDS: ONDANSETRON 4 MG/2 ML INJ IV (08:47)
--- NOTE | 2024-05-23 09:27 | EKG_ITS ---
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
--- NOTE | 2024-05-23 09:51 | DI.MRI.S_ITS ---
PROCEDURE: MR HEAD/BRAIN WO CON INDICATIONS: confusion TIA TECHNIQUE: Non-contrast axial T1 spin echo, axial T2 fast spin echo, sagittal and axial FLAIR, coronal T2 fast spin echo, axial gradient echo, axial diffusion and ADC through the brain. COMPARISON: None. FINDINGS: Image quality: Excellent. CSF spaces: Ventricles appear symmetric in size and shape. Basal cisterns are patent. No extra-axial fluid collections. Brain: No intracranial bleeds or mass effects. There is cerebral volume loss for age. There are minimal periventricular and deep white matter chronic small vessel ischemic changes. Brainstem appears normal. Diffusion-weighted images show no acute infarct. No chronic ischemic insults. Normal intravascular flow voids are present. Skull and face: Calvarial bone marrow is normal in signal. Orbits are normal. Sinuses: Bilateral mastoid effusions, greater on the left. Mucosal thickening is seen in the right sphenoid sinus and posterior ethmoid air cells. IMPRESSION: 1. No acute intracranial hemorrhage or recent infarct. 2. Mild chronic microvascular ischemic changes. 3. Bilateral mastoid effusions. Right sphenoid sinus disease. Approved by: Maverick Barney M.D. on 05/23/2024 at 10:51
[2024-05-23 10:28] LABS: Troponin I < 0.012 ng/mL (0.01-0.034)
[2024-05-23] MEDS: ASPIRIN EC 325 MG TABLET PO (11:29)
== END 2024-05-23 11:50 | disposition home or self-care (01) ==
PROVIDERS: Emergency Provider Emergency Medicine
DX: R41.0 Disorientation, unspecified (principal); I44.7 Left bundle-branch block, unspecified; R51.9 Headache, unspecified; I10 Essential (primary) hypertension; R11.0 Nausea
CPT/HCPCS: 36415; 70450; 70496; 70498; 70551; 71045; 80053; 80305; 81003; 82550; 83735; 84484; 85025; 85610; 85730; 93005; 96374; 99285; J2405